=== PATIENT | female | born 1945 | race Caucasian/White ===

== ENCOUNTER 2019-08-21 07:16 | Emergency (ER) | payer MEDICARE, SELFPAY ==
[2019-08-21] VITALS (8 sets, daily range): BP systolic 115–142; BP diastolic 67–91; PULSE 97–136; RESP 14–25; TEMP 36.6; O2SAT 97–100
--- NOTE | 2019-08-21 07:23 | ECG_ITS ---
Measurements Intervals [place] Rate: 135 P: NV: 0 QRS: 62 QRSD: 98 T: 52 QT: 312 QTc: 468 Interpretive Statements ATRIAL FIBRILLATION WITH RAPID VENTRICULAR RESPONSE INCOMPLETE RIGHT BUNDLE BRANCH BLOCK DELAYED PRECORDIAL R/S TRANSITION BASELINE WANDER- I, II ABNORMAL ECG Electronically Signed On 08-21-2019 8:23:00 CDT by Shaan Cuevas D.O.
--- NOTE | 2019-08-21 07:27 | ED.NAVMDI ---
HPI - Nausea/Vomiting/Diarrhea General Chief complaint: Nausea/Vomiting/Diarrhea Stated complaint: dizziness,nausea Time Seen by Provider: 08/21/19 07:22 History of Present Illness HPI Narrative: She was unable to sleep last night because every time she would lie down she became very dizzy. The dizziness was initially a spinning vertigo like sensation, but later became more like light headedness. Additionally she reports nausea without vomiting. She also reports intermittent heart palpitations. She tried alkaseltzer without relief. She was recently diagnosed with atrial fibrillation and a hiatal hernia. She has been feeling anxious about these diagnoses, and she had an appointment scheduled with her surgeon today. She does have a h/o anxiety. No CP, SOB, abdominal pain, vomiting, syncope, weakness, fever Related Data Home Medications Medication Instructions Recorded Confirmed amlodipine 5 mg tablet 5 mg PO DAILY 05/07/19 05/08/19 aspirin 325 mg tablet 325 mg PO DAILY 05/07/19 05/08/19 cholecalciferol (vitamin D3) 50 2,000 unit PO DAILY 05/07/19 05/08/19 mcg (2,000 unit) tablet esomeprazole magnesium 40 mg 40 mg PO DAILY 05/07/19 05/08/19 capsule,delayed release levothyroxine 150 mcg tablet 150 mcg PO DAILY 05/07/19 05/08/19 mirtazapine 30 mg tablet 30 mg PO DAILY 05/07/19 05/08/19 nebivolol 10 mg tablet 10 mg PO DAILY 05/07/19 05/08/19 sertraline 100 mg tablet 100 mg PO DAILY 05/07/19 05/08/19 budesonide 3 mg 3 mg PO TID each 05/08/19 05/08/19 capsule,delayed,extended release calcium carbonate 500 mg calcium 500 mg PO DAILY 05/08/19 05/08/19 (1,250 mg) capsule trazodone 100 mg PO HS 08/21/19 Allergies Allergy/AdvReac Type Severity Reaction Status Date / Time Penicillins Allergy Unknown Unknown Verified 08/21/19 08:02 Review of Systems Review of Systems: All systems reviewed & are unremarkable except as noted in HPI and below Constitutional: Constitutional: Denies fever(s) and Denies weakness Eyes: Eyes: Denies change in vision ENT: Denies sore throat Cardiovascular: Cardiovascular: Denies chest pain and Reports rapid heart rate Respiratory: Respiratory: Denies dyspnea Gastrointestinal: Gastrointestinal: Denies abdominal pain, Reports nausea and Denies vomiting Genitourinary: Genitourinary: Denies dysuria Neurologic: Reports dizziness, Denies syncope and Denies weakness Psychiatric: Psychiatric: Reports anxiety PMFSH Past Medical History Medical History (Updated 08/21/19 @ 10:48 by Daniel Watt MD) Arthritis Atrial fibrillation Cancer Depression Headache, migraine Hiatal hernia High cholesterol Hypertension Surgical History Surgical History History of appendectomy History of carpal tunnel release History of cataract extraction History of section History of hernia repair History of hysterectomy History of thyroidectomy History of tonsillectomy Family History Family History Mother Carcinoma of colon Family history of malignant neoplasm of cervix Father Family history of coronary artery disease Family history of cardiovascular disease Sibling Family history of coronary artery disease Social History Social History Smoking status: Former smoker Smoking end date: 06/06/93 Alcohol intake: current Exam Const: General: no acute distress and alert Nutritional Appearance: well nourished Orientation/consciousness: patient oriented x3 HENMT: Head: normal to inspection Neck: Neck: normal visual inspection Resp: Effort & Inspection: normal respiratory effort Auscultation: clear to auscultation bilaterally Cardio: Rate: tachycardic Rhythm: abnormal rhythm irregularly irregular GI: GI Palp: Yes Soft to palpation and No Tenderness to palpation present (GI) Skin: General skin exam:
[2019-08-21 07:39] LABS: Basophils Percent Auto 0.4 % (0.2-1.2); Eosinophils Percent Auto 0.1 % (0-4.4); Hematocrit 40.8 % (37.0-47.0); Hemoglobin 12.7 g/dL (12.0-15.0); Immature Granulocyte Absolute 0.05 K/mm3 (0.00-0.031); Immature Granulocyte Percent A 0.5 % (0-0.5); Lymphocytes Absolute Auto 1.04 K/mm3 (0.9-3.2); Lymphocytes Percent Auto 9.8 % (18.3-44.2); Mean Corpuscular HGB Conc 31.1 g/dl (32-36); Mean Corpuscular Hemoglobin 25.1 pg (26-34); Mean Corpuscular Volume 80.8 fl (80-100); Mean Platelet Volume 10.9 fl (7.4-10.4); Monocytes Absolute Auto 0.6 K/mm3 (0.1-0.6); Monocytes Percent Auto 5.3 % (2.6-8.5); Neutrophils Absolute Auto 8.9 K/mm3 (1.3-6.7); Neutrophils Percent Auto 83.9 % (45.5-73.1); Platelet Count Result 256 k/mm3 (150-375); Red Blood Count 5.05 M/mm3 (4.2-5.4); White Blood Count 10.6 K/mm3 (4.5-10.0)
[2019-08-21 07:49] LABS: Platelet Estimate Adequate (Adequate)
[2019-08-21 07:50] LABS: Ovalocytes 1+ (NORMAL)
[2019-08-21 07:51] LABS: Alanine Aminotransferase 17 U/L (4-35); Albumin Level 4.7 g/dL (3.5-5.1); Alkaline Phosphatase 96 U/L (38-126); Aspartate Amino Transferase 25 U/L (14-36); Bilirubin,Total 0.5 mg/dL (0.2-1.3); Blood Urea Nitrogen 10 mg/dL (7-17); Calcium 9.2 mg/dL (8.4-10.2); Carbon Dioxide 24 mmol/L (22-30); Chloride 85 mmol/L (98-107); Estimated Glomerular Filt Rate > 60; Glucose 173 mg/dL (65-105); Lipase 86 U/L (23-300); Potassium 3.4 mmol/L (3.4-5.0); Sodium 123 mmol/L (137-145)
[2019-08-21 08:08] LABS: Add Urine Microscopic? YES; Appearance Urine Clear (Clear); Bacteria Urine Trace /hpf; Bilirubin Urine Negative (Negative); Blood Urine Negative (Negative); Color Urine Straw (Yellow); Glucose Urine UA 3+ mg/dL (Negative); Ketones Urine 1+ mg/dL (Negative); Leukocyte Esterase Ur Negative LEU/UL (Negative); Nitrate Urine Negative (Negative); Protein Urine 3+ mg/dL (Negative); Specific Grav Ur 1.009 (1.001-1.035); Urobilinogen Urine Negative mg/dL (<2.0); WBC Urine 0-3 /hpf
[2019-08-21] MEDS: ONDANSETRON INJ 4 MG/2 ML VIAL IV PUSH (08:12)
[2019-08-21] MEDS: SODIUM CHLORIDE 0.9% IV 1,000 ML 999 ML IV CONT ×2 (08:12→09:27)
[2019-08-21] MEDS: MECLIZINE HCL 25 MG TABLET PO (08:12)
--- NOTE | 2019-08-21 08:18 | PC.NURSE ---
Pt requested to use restroom, this RN educated patient on need for bedside commode or bedpan due to patient's dizziness and inability to stand well. Pt declined both options, states that she will wait.
== END 2019-08-21 11:09 | disposition home or self-care (01) ==
PROVIDERS: Emergency Provider Emergency Medicine
DX: E86.0 Dehydration (principal); F41.9 Anxiety disorder, unspecified; M19.90 Unspecified osteoarthritis, unspecified site; I48.91 Unspecified atrial fibrillation; F32.9 Major depressive disorder, single episode, unspecified; E78.00 Pure hypercholesterolemia, unspecified; I10 Essential (primary) hypertension; Z98.49 Cataract extraction status, unspecified eye; I45.10 Unspecified right bundle-branch block; R94.31 Abnormal electrocardiogram [ECG] [EKG]
CPT/HCPCS: 36415; 51701; 80053; 81001; 83690; 85025; 93005; 96361; 96374; 96375; 99284; A9270; J2405; J3360; J7030

== ENCOUNTER 2019-11-06 09:37 | Outpatient (CLI) | payer MEDICARE, SELFPAY ==
[2019-11-06 10:10] LABS: Basophils Percent Auto 0.6 % (0.2-1.2); Eosinophils Absolute Auto 0.2 K/mm3 (0-0.3); Eosinophils Percent Auto 3.4 % (0-4.4); Hematocrit 40.4 % (37.0-47.0); Hemoglobin 13.1 g/dL (12.0-15.0); Immature Granulocyte Absolute 0.02 K/mm3 (0.00-0.031); Immature Granulocyte Percent A 0.3 % (0-0.5); Lymphocytes Absolute Auto 1.24 K/mm3 (0.9-3.2); Lymphocytes Percent Auto 17.3 % (18.3-44.2); Mean Corpuscular HGB Conc 32.4 g/dl (32-36); Mean Corpuscular Hemoglobin 29.6 pg (26-34); Mean Corpuscular Volume 91.2 fl (80-100); Mean Platelet Volume 10.6 fl (7.4-10.4); Monocytes Absolute Auto 0.7 K/mm3 (0.1-0.6); Monocytes Percent Auto 10.3 % (2.6-8.5); Neutrophils Absolute Auto 4.9 K/mm3 (1.3-6.7); Neutrophils Percent Auto 68.1 % (45.5-73.1); Platelet Count Result 186 k/mm3 (150-375); Red Blood Count 4.43 M/mm3 (4.2-5.4); Red Cell Distribution Width 15.3 % (11.5-14.5); White Blood Count 7.2 K/mm3 (4.5-10.0)
[2019-11-06 10:33] LABS: Alanine Aminotransferase 14 U/L (4-35); Albumin Level 4.4 g/dL (3.5-5.1); Alkaline Phosphatase 96 U/L (38-126); Aspartate Amino Transferase 25 U/L (14-36); Bilirubin,Total 0.4 mg/dL (0.2-1.3); Blood Urea Nitrogen 18 mg/dL (7-17); Calcium 9.4 mg/dL (8.4-10.2); Carbon Dioxide 28 mmol/L (22-30); Chloride 97 mmol/L (98-107); Cholesterol 160 mg/dL (0-200); Estimated Glomerular Filt Rate > 60; Glucose 108 mg/dL (65-105); HDL Direct 72 mg/dL; Potassium 4.8 mmol/L (3.4-5.0); Sodium 133 mmol/L (137-145); Triglycerides 235 mg/dL (<150)
[2019-11-06 10:44] LABS: LDL Cholesterol Direct 52 mg/dL
== END 2019-11-06 09:38 | disposition home or self-care (01) ==
PROVIDERS: Visit Provider Internal Medicine Cardiovascular Disease
DX: E78.00 Pure hypercholesterolemia, unspecified (principal); D64.9 Anemia, unspecified; R19.7 Diarrhea, unspecified
CPT/HCPCS: 36415; 80053; 80061; 83735; 85025

== ENCOUNTER 2020-04-01 08:09 | Outpatient (CLI) | payer MEDICARE, SELFPAY ==
[2020-04-01 08:47] LABS: Cholesterol 217 mg/dL (0-200); HDL Direct 89 mg/dL; Triglycerides 139 mg/dL (<150)
[2020-04-01 08:57] LABS: LDL Cholesterol Direct 89 mg/dL
== END 2020-04-01 08:10 | disposition home or self-care (01) ==
PROVIDERS: Visit Provider Internal Medicine Cardiovascular Disease
DX: E78.00 Pure hypercholesterolemia, unspecified (principal); I10 Essential (primary) hypertension
CPT/HCPCS: 36415; 80061

== ENCOUNTER 2020-06-27 10:00 | Outpatient (RCR) | payer MEDICARE, SELFPAY ==
[2020-06-05 10:05] VITALS: BP_SYST 132
--- NOTE | 2020-06-05 11:36 | PTOPEVAL ---
Thank you for referring Ileana Moon to [facility].? The patient is scheduled to be seen for therapy? 2 x/week for 3 weeks. Please review, sign, date and return this plan of care TERESA. I agree with and certify that the following plan of care is medically necessary. Referring Physician Date Attending Provider: William Hackett MD Referring Provider: William Hackett MD *PT Outpatient Evaluation Start: 06/05/20 10:06 Freq: Status: Active Protocol: Document 06/05/20 10:05 JOEL (Rec: 06/05/20 11:06 JOEL [id number]) Therapy Assessment Status Assessment Status Assessment Status Evaluation Outpatient Past Medical History Past Medical History Source of Past Medical History Patient Neurological History Hx Migraine Yes Cardiovascular History Hx Atrial Fibrillation Yes Hx Hypercholesterolemia Yes Hx Hypertension Yes Hx Palpitations Yes Gastrointestinal History Hx Diverticulitis Yes Hx Hernia Yes Musculoskeletal History Hx Arthritis Yes: right shoulder Hx Orthopedic Surgery Yes: right rotator cuff repair 2 yrs ago Hx Osteoporosis Yes Endocrine History Hx Thyroidectomy Yes Reproductive History Hx Hysterectomy Yes Psychosocial History Hx Anxiety Yes Hx Depression Yes Other History Hx Cancer Yes: thyroid, basal cell Evaluation Information Problem Diagnosis right shoulder pain Onset 2 months Cause yardwork Subjective Information Reports her pain started after Query Text:As Reported By Patient/ raking the leaves ~2 months Family ago. She used to perform silver sneakers everyday, but stopped in August. She does feel like physical strength has decreased. She does like to ride a bike for exercise. She does not perform a stretching or strengthening program at home. She received an injection but is uncertain if it helped. She report pain with any pressure of the right UE. Reports increased pain with reaching and ADL's, lifting or any use of right UE. She tries to avoid use of right UE.
--- NOTE | 2020-06-27 16:04 | PTOPEVAL ---
Thank you for referring Ileana Moon to [facility].? Pt has received 7 therapy visit to address her shoulder impairments. She demonstrates progress with shoulder motion, improved pain and improved soft tissue restrictions. She continues to demonstrates significant weakness of christiano shoulder with right greater than left. She is indep with her HEP at this time. She has reached maximal potential with skilled therapy services with goals partially achieved. DC skilled PT service with pt to cont with her HEP. Please review, sign, date and return this plan of care TERESA. I agree with and certify that the following plan of care is medically necessary. Referring Physician Date Admitting Provider: Attending Provider: William Hackett MD Referring Provider: William Hackett MD *PT Outpatient Evaluation Start: 06/05/20 10:06 Freq: Status: Active Protocol: Document 06/27/20 09:56 JOEL (Rec: 06/27/20 10:47 CAP [id number]) Therapy Assessment Status Assessment Status Assessment Status Re-evaluation/Discharge Note Outpatient Past Medical History Past Medical History Source of Past Medical History Patient Neurological History Hx Migraine Yes Cardiovascular History Hx Atrial Fibrillation Yes Hx Hypercholesterolemia Yes Hx Hypertension Yes Hx Palpitations Yes Gastrointestinal History Hx Diverticulitis Yes Hx Hernia Yes Musculoskeletal History Hx Arthritis Yes: right shoulder Hx Orthopedic Surgery Yes: right rotator cuff repair 2 yrs ago Hx Osteoporosis Yes Endocrine History Hx Thyroidectomy Yes Reproductive History Hx Hysterectomy Yes Psychosocial History Hx Anxiety Yes Hx Depression Yes Other History Hx Cancer Yes: thyroid, basal cell Evaluation Information Problem Diagnosis right shoulder pain Onset 2 months Cause yardwork Additional Evaluation Detail Reports her pain started after raking the leaves ~2 months ago. Subjective Information States she is able to perform Query Text:As Reported By Patient/ UE activities but has Family increased pain with pressure through the UE with activities . Any pressure into the right Gh joint causes pain. She reports improved ability to reach with the left UE. She reports increased pain with washing windows. She is able to pee cleaning 1 window, then
== END 2020-06-30 08:26 | disposition home or self-care (01) ==
LOC: ANHPT 10:00
PROVIDERS: PCP Internal Medicine; Referring Provider Orthopaedic Surgery; Visit Provider Orthopaedic Surgery
DX: M19.011 Primary osteoarthritis, right shoulder (principal)
CPT/HCPCS: 97014; 97110; 97112; 97140; 97162; G0283

== ENCOUNTER 2021-01-06 17:07 | Inpatient (IN) | payer MEDICARE, SELFPAY ==
--- NOTE | ~2021-01-06 | CT_ITS ---
EXAMINATION: CT abdomen pelvis wo con DATE: 01/06/2021 20:42 INDICATION: Diarrhea. TECHNIQUE: Computed tomography (CT) of the abdomen and pelvis was performed without intravenous contr ast. Automated exposure control and iterative reconstruction technique were employed. The dose-length product was 328.18 mGy-cm. COMPARISON: None. FINDINGS: The visualized portions of the lung bases demonstrate smooth septal thickening, consistent with mild pulmonary edema. There are small pleural effusions. Cardiomegaly is noted. No pericardial e ffusion. There are surgical changes at the gastroesophageal junction. Calcifications in the liver and spleen are consistent with old granulomatous disease. The gallbladder, pancreas, adrenal glands, and left kidney are normal. There is mild atrophy of right kidney. There is diverticulosis of the colon without evidence of diverticulitis. There are no dilated loops of bowel. The appendix is not visualiz ed. There are no pathologically enlarged lymph nodes. There is no free intraperitoneal fluid. There i s a 2.9 x 1.9 cm cyst in right adnexa, likely benign. There is lumbar levoscoliosis and severe spondy losis. IMPRESSION: 1. Mild pulmonary edema with small pleural effusions. 2. Cardiomegaly. Reviewed, dictated and finalized at location A.
[2021-01-06 17:25] VITALS: BP 148/67; PULSE 61; RESP 18; TEMP 36.8; O2SAT 100
--- NOTE | 2021-01-06 17:26 | ECG_ITS ---
Measurements Intervals [place] Rate: 69 P: 58 GA: 190 QRS: 62 QRSD: 89 T: 43 QT: 424 QTc: 457 Interpretive Statements SINUS RHYTHM FREQUENT ATRIAL PREMATURE COMPLEXES MINIMAL Q WAVES- ANTEROLAT/INF LEADS BASELINE ARTIFACT- I, III ABNORMAL ECG Electronically Signed On 01-06-2021 20:24:42 CDT by Shaan Cuevas D.O.
[2021-01-06 17:56] VITALS: BP 125/43; PULSE 64
[2021-01-06 17:58] VITALS: BP 142/96; PULSE 109
[2021-01-06 17:59] VITALS: BP 161/67; PULSE 95
[2021-01-06 18:02] LABS: Basophils Absolute Auto 0.1 K/mm3 (0.0-0.1); Basophils Percent Auto 0.5 % (0.2-1.2); Eosinophils Percent Auto 0.4 % (0-4.4); Hematocrit 40.8 % (37.0-47.0); Hemoglobin 13.4 g/dL (12.0-15.0); Immature Granulocyte Absolute 0.05 K/mm3 (0.00-0.031); Immature Granulocyte Percent A 0.5 % (0-0.5); Lymphocytes Percent Auto 9.9 % (18.3-44.2); Mean Corpuscular HGB Conc 32.8 g/dl (32-36); Mean Corpuscular Hemoglobin 31.1 pg (26-34); Mean Corpuscular Volume 94.7 fl (80-100); Mean Platelet Volume 10.4 fl (7.4-10.4); Monocytes Absolute Auto 0.9 K/mm3 (0.1-0.6); Monocytes Percent Auto 7.8 % (2.6-8.5); Neutrophils Percent Auto 80.9 % (45.5-73.1); Platelet Count Result 219 k/mm3 (150-375); Red Blood Count 4.31 M/mm3 (4.2-5.4); White Blood Count 11.1 K/mm3 (4.5-10.0)
[2021-01-06 18:11] LABS: Anion Gap 10 mmol/L (8-16); Blood Urea Nitrogen 15 mg/dL (7-17); Carbon Dioxide 21 mmol/L (22-30); Chloride 95 mmol/L (98-107); Estimated CRCL calculation 61 ml/min; Estimated Glomerular Filt Rate > 60; Glucose 188 mg/dL (65-110); Potassium 4.4 mmol/L (3.4-5.0); Sodium 126 mmol/L (137-145)
[2021-01-06] MEDS: SODIUM CHLORIDE 0.9% IV 1,000 ML 999 ML IV CONT (18:26)
[2021-01-06] MEDS: SODIUM CHLORIDE 0.9% IV 1,000 ML 75 ML IV CONT (19:00)
[2021-01-06 19:01] VITALS: BP 117/57; PULSE 70; RESP 15; O2SAT 100
[2021-01-06 20:16] LABS: Creatinine Urine 103.8 mg/dL
--- NOTE | 2021-01-06 20:18 | ED.DIZZY ---
HPI - Dizziness General Chief Complaint: Dizziness Stated Complaint: dizzy,shaky since December Time Seen by Provider: 01/06/21 18:02 Source: patient Mode of arrival: ambulatory Limitations: no limitations History of Present Illness HPI Narrative: 75-year-old female Patient complains that she has been ill since visiting [place] in mid December She got diarrhea while she was there and had to be hydrated in an ER before returning back home Here she is beginning been bothered by recurrence of similar nonbloody diarrhea symptoms and crampy abdominal pain, nausea but not really any vomiting, no fever, poor appetite although she has been trying to stay hydrated by drinking a lot of water She saw her PCP who is in [place] and reports that she had a CT scan done as an outpatient there about a week ago which showed pancolitis She was treated with antidiarrheals which she is taking up to 6 times a day, Flagyl starting late last week, and Cipro was added 1 day ago, but continues to have 4 or 5 loose stools a day She has a GI physician in [place] and has an appointment there in a week Today she felt dizzy as though she might be dehydrated Interestingly about a year and a half ago she was here one other time for dizziness and had a low sodium at that time as well Related Data Home Medications Medication Instructions Recorded Confirmed cholecalciferol (vitamin D3) 50 2,000 unit PO DAILY 05/07/19 12/11/20 mcg (2,000 unit) tablet sertraline 100 mg tablet 100 mg PO DAILY 05/07/19 12/11/20 calcium carbonate 500 mg calcium 500 mg PO DAILY 05/08/19 12/11/20 (1,250 mg) capsule losartan 50 mg-hydrochlorothiazide 1 tablet PO DAILY 02/05/20 12/11/20 12.5 mg tablet omega-3 fatty acids 1,000 mg 1,000 mg PO DAILY 02/05/20 12/11/20 capsule levothyroxine 150 mcg tablet 175 mcg PO DAILY tablet 12/11/20 12/11/20 rosuvastatin 10 mg tablet 10 mg PO tablet 12/11/20 12/11/20 Allergies Allergy/AdvReac Type Severity Reaction Status Date / Time Penicillins Allergy Unknown Unknown Verified 07/29/20 09:40 Review of Systems Review of Systems: All systems reviewed & are unremarkable except as noted in HPI and below Constitutional: Constitutional: Reports no additional constitutional complaints, Denies chills, Reports fatigue, Denies fever(s), Denies headache(s) and Reports weakness Eyes: Eyes: Reports no additional eye complaints and Denies change in vision ENT: Denies headache(s) and Denies sore throat Cardiovascular: Cardiovascular: Denies chest pain and Denies dyspnea Respiratory: Respiratory: Denies cough and Denies dyspnea Gastrointestinal: Gastrointestinal: Reports abdominal pain, Reports diarrhea, Reports nausea and Denies vomiting Genitourinary: Genitourinary: Denies urinary frequency and Denies dysuria Musculoskeletal: Musculoskeletal: Denies deformity, Denies arthralgias, Denies joint swelling and Denies numbness Integumentary/Breasts: Skin/Breast: Denies rash and Denies wounds Neurologic: Denies headache(s), Denies focal weakness and Denies numbness Psychiatric: Psychiatric: Reports no additional psychiatric complaints Endocrine: Endocrine: Reports no additional endocrine complaints Hematologic/Lymphatic: Hematologic/Lymphatic: Reports no additional hematologic/lymphatic complaints Allergic/Immunologic: Allergic/Immunologic: Reports no additional allergic/immunologic complaints [facility] Past Medical History Medical History (Updated 01/06/21 @ 20:24 by Beau Espinosa MD) Age related osteoporosis Anemia Arthritis Arthritis of right shoulder region Atrial fibrillation Basal cell carcinoma BMI between 19-24,adult Cancer Degenerative arthritis of knee, bilateral Depression Headache, migraine Hiatal hernia High cholesterol Hypertension Thyroid cancer Surgical History Surgical History Arthritis of carpometacarpal (CMC) joint of right thumb suspension arthr
[2021-01-06 20:32] LABS: Sodium Urine Random 88 meq/L
--- NOTE | 2021-01-06 20:40 | PM.IMHP ---
H&P: HPI History of Present Illness Date/Time: 01/06/21 20:40 Chief Complaint: dizziness Narrative: This is a 75-year-old female with past medical history significant for hypertension, atrial fibrillation on anticoagulation ,hypothyroidism, dyslipidemia, depression. Patient presented to the emergency room via EMS after she felt very dizzy feeling like passing out states that she knew she was dehydrated and has been trying to drink enough water but has been feeling very nauseated as a result of antibiotics that she was prescribed to take. She has had diarrhea for the last 8 weeks or so a started when she was vacationing in [place] she presented over to the emergency room and she was given fluids and discharged home diarrhea has continued now is a 4 bowel movements a day small amount no phlegm or blood in the diarrhea initially was watery. she denies any fevers chills rigors no vomiting no joint pains no rashes she drinks tap water at times and bottle water as well. preliminary workup was significant for a sodium of 126. Rest of workup has been essentially nonrevealing. Review of Systems Review of Systems: DIARRHEA NOW FOR 8 WEEKS OR SO DIZZINESS JUST RECENTLY Constitutional: Constitutional: Denies chills, Denies fatigue, Denies fever(s), Denies malaise, Reports poor appetite and Denies weakness Eyes: Eyes: Denies change in vision ENT: Denies dysphagia, Denies nasal discharge, Denies nasal obstruction and Denies odynophagia Cardiovascular: Cardiovascular: Denies claudication, Reports lightheadedness, Denies radiating jaw, neck or arm pain, Denies palpitations and Denies dyspnea Respiratory: Respiratory: Denies cough and Denies dyspnea Gastrointestinal: Gastrointestinal: Denies melena, Denies bloating, Denies GI cramping, Denies dyspepsia, Reports diarrhea, Reports nausea and Denies vomiting Genitourinary: Genitourinary: Reports no additional female genitourinary complaints Musculoskeletal: Musculoskeletal: Reports no additional musculoskeletal complaints Integumentary/Breasts: Skin/Breast: Reports system reviewed and no additional complaints, except as docu Neurologic: Reports system reviewed and no additional complaints, except as documented Psychiatric: Psychiatric: Reports no additional psychiatric complaints Endocrine: Endocrine: Reports no additional endocrine complaints Hematologic/Lymphatic: Hematologic/Lymphatic: Reports no additional hematologic/lymphatic complaints Allergic/Immunologic: Allergic/Immunologic: Reports no additional allergic/immunologic complaints PMFSH Past Medical History Medical History (Updated 01/06/21 @ 20:24 by Beau Espinosa MD) Age related osteoporosis Anemia Arthritis Arthritis of right shoulder region Atrial fibrillation Basal cell carcinoma BMI between 19-24,adult Cancer Degenerative arthritis of knee, bilateral Depression Headache, migraine Hiatal hernia High cholesterol Hypertension Thyroid cancer Surgical History Surgical History Arthritis of carpometacarpal (CMC) joint of right thumb suspension arthroplasty H/O knee surgery scope, 2010 H/O shoulder surgery History of appendectomy History of cataract extraction History of section History of hernia repair History of hysterectomy History of thyroidectomy History of tonsillectomy Family History Family History Mother Carcinoma of colon Family history of malignant neoplasm of cervix Father Family history of coronary artery disease Family history of cardiovascular disease Sibling Family history of coronary artery disease Social History Social History Smoking status: Former smoker Smoking end date: 06/06/93 Alcohol intake: current Alcohol use details: occasional Additional occupation/education comments: retired teacher [employer]
[2021-01-06] MEDS: ONDANSETRON INJ 4 MG/2 ML VIAL IV PUSH (21:10)
--- NOTE | 2021-01-06 21:19 | ADMGEN ---
This patient, Ileana Moon, was admitted to 2 Medical Room 256-. Patient/family oriented to hospital policies and general routines including ID bracelet, bed and alarms, visiting hours, pain management, procedures, bathroom and other care routines, personal items, smoking policy, room service/diet, and visiting hours. Information on how to activate the Rapid Response Team has been discussed. Patient/Family are encouraged to report perceived risks to care and to ask questions if they do not understand what they are told or what they should do.
[2021-01-06 21:28] VITALS: BP 165/63; PULSE 84; RESP 16; TEMP 36.3; O2SAT 100; BMI 24.9
[2021-01-06] MEDS: CIPROFLOXACIN 500 MG TAB PO (23:59)
[2021-01-06] MEDS: APIXABAN 5 MG TABLET PO (23:59)
[2021-01-06] MEDS: QUEtiapine FUMARATE 25 MG TABLET PO (23:59)
[2021-01-06] MEDS: metroNIDAZOLE 250 MG TABLET 500 MG PO (23:59)
[2021-01-07] MEDS: SODIUM CHLORIDE 0.9% IV 1,000 ML 75 ML IV CONT ×2 (02:41→16:04)
[2021-01-07 05:50] LABS: Anion Gap 7 mmol/L (8-16); Blood Urea Nitrogen 10 mg/dL (7-17); Calcium 8.5 mg/dL (8.4-10.2); Carbon Dioxide 22 mmol/L (22-30); Chloride 98 mmol/L (98-107); Estimated CRCL calculation 72 ml/min; Estimated Glomerular Filt Rate > 60; Glucose 84 mg/dL (65-110); Sodium 127 mmol/L (137-145)
[2021-01-07 06:00] VITALS: BP 113/49; PULSE 65; RESP 16; TEMP 36.6; O2SAT 97
[2021-01-07] MEDS: ONDANSETRON INJ 4 MG/2 ML VIAL IV PUSH ×2 (06:01→08:55)
[2021-01-07] MEDS: LEVOTHYROXINE SODIUM 75 MCG TABLET PO (06:27)
[2021-01-07] MEDS: metroNIDAZOLE 250 MG TABLET 500 MG PO ×3 (06:27→21:02)
[2021-01-07] MEDS: LEVOTHYROXINE SODIUM 100 MCG TABLET PO (06:27)
[2021-01-07 08:21] LABS: Cortisol Random 3.39 ug/dL
[2021-01-07] MEDS: ROSUVASTATIN 10 MG TABLET PO (09:46)
[2021-01-07] MEDS: POTASSIUM CHLORIDE 20 MEQ TABLET.ER PO (09:46)
[2021-01-07] MEDS: APIXABAN 5 MG TABLET PO ×2 (09:46→16:05)
[2021-01-07 09:47] VITALS: PULSE 66
[2021-01-07] MEDS: BUDESONIDE 3 MG CAP.SR.24H 9 MG PO (09:47)
[2021-01-07] MEDS: CIPROFLOXACIN 500 MG TAB PO ×2 (09:47→21:02)
[2021-01-07] MEDS: SERTRALINE HCL 50 MG TABLET 100 MG PO (09:47)
[2021-01-07] MEDS: NEBIVOLOL HCL 5 MG TABLET 10 MG PO (09:47)
--- NOTE | 2021-01-07 10:55 | PM.IMPN ---
Progress Note: A&P Assessment and Plan (1) Chronic diarrhea: Code(s): K52.9 - Noninfective gastroenteritis and colitis, unspecified Status: Acute (2) Hyponatremia: Code(s): E87.1 - Hypo-osmolality and hyponatremia Status: Acute (3) Degenerative arthritis of knee, bilateral: Qualifiers: Osteoarthritis type: primary Qualified Code(s): M17.0 - Bilateral primary osteoarthritis of knee Code(s): M17.0 - Bilateral primary osteoarthritis of knee Status: Chronic (4) PAT (paroxysmal atrial tachycardia): Code(s): I47.1 - Supraventricular tachycardia Status: Acute (5) High cholesterol: Code(s): E78.00 - Pure hypercholesterolemia, unspecified Status: Acute (6) Hypertension: Code(s): I10 - Essential (primary) hypertension Status: Acute Additional Plan Patient presents with persistent diarrhea. She is currently on Cipro Flagyl which was continued. She was also continued on her Entocort as well. Her diarrhea is slowly improving. He appears to have her chronic colitis possibly ulcerative colitis but patient not sure. I attempted to call her GI doctor and left a message and are awaiting a call back. CT scan here showing no evidence of colitis to suggest that her current treatment plan is working. Suspect given the duration of her colitis that may be a delayed recovery. EKG showing normal sinus rhythm. Will continue beta-martina. Continue Eliquis for now since she has a stable hemoglobin and no evidence of GI bleeding. She has low sodium of 126 on admission. Urine Na elevated at 88 which would seem inappropriate but FENa 0.4%. She is on a diuretic which could be skewing these findings. TSH normal. Cortisol level low but on oral steroids currently so probably suppressed. Na level climbing. CT scan did show possible pulmonary edema although felt less likely given the clinical findings. She is not on oxygen and her lung exam was clear. Will start PT OT. GI has been consulted. Advance diet as tolerated. Blood pressure mostly well controlled. Continue current medications for now. Repeat urine studies. Follow Na. Add celiac panel. Eliquis will cover for DVT prophylaxis. Spoke with her GI doctor and he stated the patient was diagnoes with collagenous colitis in 2015. She has been intermittently treated with Enterocort with good benefit. She had her last colonoscopy in Jul 2019. She had been off the Enterocort up until she called in on December 24 with the above symptoms and Enterocort resumed. She can use [facility] if needed for the diarrhea. She has an appointment on 01/13. He had no other recommendations at this time. Will advance diet as she tolerates. Left message with son. Subjective Date/time seen: 01/07/21 10:55 Interval history: 75yo female with HTN, pAFib and hx of colitis here for diarrhea. Patient states she had diarrhea before she left [place] 3-4 weeks ago. Her symptoms worsened and she was admitted to a hospital in [place] for diarrhea. She treat with IV fluids and her electrolytes were corrected. She refused the CT at that time due to urgency to return home. When she returned to [place] a she contacted her GI doctor (Isaac Woods DO at [phone])from [facility]. she has a history of colitis and this is her 4th time. Enterocort was started. She later contacted her primary care provider and a CT of the abdomen and pelvis was ordered which showed pancolitis. This was about 1 week ago. She was started on Flagyl and then Cipro added. Her stool have improved with decrease watery stools and decreased frequency. No melena or hematochezia. Her last colonoscopy was spring which showed colitis at that time as well. She presents here because of persistent diarrhea. CT scan of the abdomen and pelvis showed diverticulosis but no evidence of diverticulitis or colitis. She still feels very weak. She is not lactose intolerant. Sh
[2021-01-07 14:42] LABS: Creatinine Urine 7.1 mg/dL
[2021-01-07 14:55] VITALS: BP 158/85; PULSE 68; RESP 18; TEMP 36.1; O2SAT 100
[2021-01-07 14:56] LABS: Sodium Urine Random 29 meq/L
--- NOTE | 2021-01-07 16:11 | WPDGICN ---
Assessment and Plan Assessment and plan (1) Chronic diarrhea: Code(s): K52.9 - Noninfective gastroenteritis and colitis, unspecified Status: Acute Assessment and Plan: based on patient she has been diagnosed with microscopic colitis for which she has been using budenoside only when she has a flare she is doing much better now, CT scan no colitis stool samples pending on iv antibiotics tolerating diet she will need follow up with her GI doctor (she already has an appointment for new week) pending serology for celiac disease (2) Dehydration: Code(s): E86.0 - Dehydration Status: Inactive Assessment and Plan: treated and better (3) Hyponatremia: Code(s): E87.1 - Hypo-osmolality and hyponatremia Status: Acute Assessment and Plan: from ongoing gi loss, nausea, etc monitor (4) PAF (paroxysmal atrial fibrillation): Code(s): I48.0 - Paroxysmal atrial fibrillation Status: Acute (5) Family history of colon cancer: Code(s): Z80.0 - Family history of malignant neoplasm of digestive organs Status: Acute Assessment and Plan: she is already establish with GI in [facility] GI Consult Note Consult date/time: 01/07/21 16:11 Reason for consult: diarrhea, dehydration HPI: Ileana Moon is a 75 year old female with past medical history significant for hypertension, atrial fibrillation on anticoagulation, hypothyroidism and also microscopic colitis diagnosed few years ago, she is established with Dr Arvind Woods, customer solutions architect in [facility]. She says that has taken budesonidewhenever she will have more episodes of diarrhea and normally will use it only for 2 weeks at time. She says that probably does not happen more than once a year and in between episodes she has normal bowel movements once a day. About 8 weeks ago she went to [place] where she had diarrhea several times a day, admitted to a hospital for a day for IV hydration. She still had ongoing diarrhea, called her GI doctor about 1 week ago and she has been taking again budesonide and also lomotil several times a day. She came with worsening dizziness feeling like passing out, also nausea. Denies fever or chills. No sick contacts. She says that C diff was negative. CT scan reviewed, no colitis, diverticulosis without inflammation, mild pulmonary edema with small pleural effusions, cardiomegaly. Also had dehydration with Na 126. Started on fluids, given antibiotics and today she is feeling much better. Denies blood in stools. She says that last colonoscopy 2 years ago and had several previously (family history of colon cancer) Review of Systems Constitutional: Constitutional: Reports lethargy Eyes: Eyes: Denies blurry vision ENT: Reports Normal hearing present Cardiovascular: Cardiovascular: Denies chest pain Respiratory: Respiratory: Denies dyspnea Gastrointestinal: Gastrointestinal: Reports diarrhea Genitourinary: Genitourinary: Denies hematuria Musculoskeletal: Musculoskeletal: Denies neck pain Integumentary/Breasts: Skin/Breast: Denies dry skin Neurologic: Comments: dizziness Psychiatric: Psychiatric: Denies confusion [facility] Past Medical History Medical History (Updated 01/07/21 @ 16:22 by George Hayden MD) Age related osteoporosis Anemia Arthritis Arthritis of right shoulder region Atrial fibrillation Basal cell carcinoma BMI between 19-24,adult Cancer Degenerative arthritis of knee, bilateral Depression Family history of colon cancer Headache, migraine Hiatal hernia High cholesterol Hypertension Thyroid cancer Surgical History Surgical History Arthritis of carpometacarpal (CMC) joint of right thumb suspension arthroplasty H/O knee surgery scope, 2010 H/O shoulder surgery History of appendectomy History of cataract extraction History of section History of hernia repair History of hyster
[2021-01-07 20:00] VITALS: PULSE 67; RESP 18; O2SAT 98
[2021-01-07 20:30] VITALS: BP 121/53; PULSE 67; RESP 18; TEMP 36.3; O2SAT 98
[2021-01-07] MEDS: QUEtiapine FUMARATE 25 MG TABLET PO (21:02)
[2021-01-08] MEDS: SODIUM CHLORIDE 0.9% IV 1,000 ML 75 ML IV CONT (04:48)
[2021-01-08 05:12] VITALS: BP 115/77; PULSE 100; RESP 20; TEMP 36.7; O2SAT 98
[2021-01-08 05:45] LABS: Hemoglobin 12.2 g/dL (12.0-15.0); Mean Corpuscular HGB Conc 32.1 g/dl (32-36); Mean Corpuscular Volume 96.7 fl (80-100); Mean Platelet Volume 10.4 fl (7.4-10.4); Platelet Count Result 181 k/mm3 (150-375); Red Blood Count 3.93 M/mm3 (4.2-5.4); Red Cell Distribution Width 13.2 % (11.5-14.5); White Blood Count 5.7 K/mm3 (4.5-10.0)
[2021-01-08 06:00] LABS: Alanine Aminotransferase 19 U/L (4-35); Albumin Level 3.3 g/dL (3.5-5.1); Alkaline Phosphatase 52 U/L (38-126); Anion Gap 7 mmol/L (8-16); Aspartate Amino Transferase 25 U/L (14-36); Bilirubin,Total 0.3 mg/dL (0.2-1.3); Blood Urea Nitrogen 5 mg/dL (7-17); Calcium 8.4 mg/dL (8.4-10.2); Carbon Dioxide 22 mmol/L (22-30); Chloride 103 mmol/L (98-107); Estimated CRCL calculation 72 ml/min; Estimated Glomerular Filt Rate > 60; Glucose 88 mg/dL (65-110); Potassium 3.6 mmol/L (3.4-5.0); Sodium 132 mmol/L (137-145)
[2021-01-08] MEDS: LEVOTHYROXINE SODIUM 100 MCG TABLET PO (06:07)
[2021-01-08] MEDS: LEVOTHYROXINE SODIUM 75 MCG TABLET PO (06:07)
[2021-01-08] MEDS: metroNIDAZOLE 250 MG TABLET 500 MG PO (06:07)
[2021-01-08] MEDS: BUDESONIDE 3 MG CAP.SR.24H 9 MG PO (08:12)
[2021-01-08] MEDS: CALCIUM CARBONATE (OSCAL) 500 MG TABLET PO (08:12)
[2021-01-08 08:13] VITALS: PULSE 86
[2021-01-08] MEDS: APIXABAN 5 MG TABLET PO (08:13)
[2021-01-08] MEDS: CIPROFLOXACIN 500 MG TAB PO (08:13)
[2021-01-08] MEDS: POTASSIUM CHLORIDE 20 MEQ TABLET.ER PO (08:13)
[2021-01-08] MEDS: NEBIVOLOL HCL 5 MG TABLET 10 MG PO (08:13)
[2021-01-08] MEDS: OMEGA 3 POLYUNSAT FATTY ACIDS 1 GM CAP PO (08:13)
[2021-01-08] MEDS: SERTRALINE HCL 50 MG TABLET 100 MG PO (08:13)
[2021-01-08] MEDS: CHOLECALCIFEROL 1,000 UNITS TABLET 2000 UNITS PO (08:13)
[2021-01-08] MEDS: amLODIPine BESYLATE 5 MG TABLET 10 MG PO (08:13)
--- NOTE | 2021-01-08 10:42 | PM.DS ---
DS: Admitting Diagnosis Admitting Diagnosis Diarrhea DS: Discharge Diagnosis Discharge Diagnosis (1) Chronic diarrhea: Code(s): K52.9 - Noninfective gastroenteritis and colitis, unspecified Status: Acute Assessment and Plan: secondary to collagenous colitis. (2) Hyponatremia: Code(s): E87.1 - Hypo-osmolality and hyponatremia Status: Acute (3) Degenerative arthritis of knee, bilateral: Qualifiers: Osteoarthritis type: primary Qualified Code(s): M17.0 - Bilateral primary osteoarthritis of knee Code(s): M17.0 - Bilateral primary osteoarthritis of knee Status: Chronic (4) PAT (paroxysmal atrial tachycardia): Code(s): I47.1 - Supraventricular tachycardia Status: Acute (5) High cholesterol: Code(s): E78.00 - Pure hypercholesterolemia, unspecified Status: Acute (6) Hypertension: Code(s): I10 - Essential (primary) hypertension Status: Acute DS: Summary Hospital Course Reason for hospitalization: 75yo female here for diarrhea. Please see H&P for details Hospital Course: Patient states she had diarrhea before she left [place] 3-4 weeks ago. Her symptoms worsened and she was admitted to a hospital in [place] for diarrhea. She treat with IV fluids and her electrolytes were corrected. She refused the CT at that time due to urgency to return home. When she returned to [place] a she contacted her GI doctor (Isaac Woods DO at [phone])from [facility]. she has a history of colitis and this is her 4th time. Enterocort was started. She later contacted her primary care provider and a CT of the abdomen and pelvis was ordered which showed pancolitis. This was about 1 week ago. She was started on Flagyl and then Cipro added. Her stool have improved with decrease watery stools and decreased frequency. No melena or hematochezia. Her last colonoscopy was spring which showed colitis at that time as well. She presented here because of persistent diarrhea. CT scan here showing no evidence of colitis to suggest that her current treatment plan is working. Suspect given the duration of her colitis that may be a delayed recovery. EKG showing normal sinus rhythm. Will continue her beta-martina. We continued her Eliquis as well since she had a stable hemoglobin and no evidence of GI bleeding. She had low sodium of 126 on admission. Urine Na elevated at 88 which would seem inappropriate but FENa 0.4%. She was on a diuretic which could be skewing these findings. TSH normal. Cortisol level low but on oral steroids currently so probably suppressed. Na level climbed to 132 with the IV fluids. CT scan did show possible pulmonary edema although felt less likely given the clinical findings. She is not on oxygen and her lung exam was clear. GI has been consulted here. Spoke with her GI doctor and he stated the patient was diagnosed with collagenous colitis in 2015. She has been intermittently treated with Enterocort with good benefit. She had her last colonoscopy in Jul 2019. She had been off the Enterocort up until she called in on December 24 with the above symptoms and Enterocort resumed. She can use Lomotile if needed for the diarrhea. She has an appointment on 01/13/21. We advanced her diet which she tolerated well. Diarrhea improved. She feels well and is requesting discharge. She overall did well and was able to discharged home 01/08/21 Status at Discharge Cognitive/behavioral status at discharge: stable Time Spent with Patient Time attestation: Total time spent providing and/or coordinating discharge services: 32 minutes Time spent: Greater than 30 minutes Exam Narrative: AF 98.1 115/77 86 20 98% ra Gen - NARD Chest - CTA bilaterally, nml RR CV - RRR S1/S2 with occasional extra beat Abd - Soft, NT/ND, Positive BS Ext - No pedal edema Neuro - Alert and oriented. Nonfocal exam. Psych - Nml mood and affect Skin -
[2021-01-11 00:36] LABS: Osmolality, Urine 590 mOsm/kg (50-1200)
[2021-01-12 21:15] LABS: Lactoferrin, Stool Negative (Negative)
--- NOTE | 2021-01-13 10:10 | PC.NURSE ---
Stool cx is negative.
[2021-01-14 10:36] LABS: Gliadin AB, IgG 3 Units (<20); Reticulin IgA Negative (Negative); TTG IGA AB 1 U/mL (<4)
--- NOTE | 2021-01-15 13:28 | PC.NURSE ---
Celiac panel is WNL. Oand P are negative Stool cx is negative Stool WBC- negative. Dr. Brian iperre.
== END 2021-01-08 11:59 | disposition home or self-care (01) | DRG 392 ==
LOC: ANHED 18:02 → ANH2MED 20:24
PROVIDERS: Internal Medicine; Admitting Provider Internal Medicine; Emergency Provider Emergency Medicine; PCP Internal Medicine; Visit Provider Internal Medicine
DX: K52.9 Noninfective gastroenteritis and colitis, unspecified (principal); E87.1 Hypo-osmolality and hyponatremia; I47.1 Supraventricular tachycardia; E86.0 Dehydration; I48.0 Paroxysmal atrial fibrillation; M17.0 Bilateral primary osteoarthritis of knee; E78.00 Pure hypercholesterolemia, unspecified; I10 Essential (primary) hypertension; Z79.899 Other long term (current) drug therapy; Z80.0 Family history of malignant neoplasm of digestive organs; Z85.850 Personal history of malignant neoplasm of thyroid; Z87.891 Personal history of nicotine dependence
CPT/HCPCS: 36415; 74176; 80048; 80053; 82533; 82570; 83516; 83630; 83935; 84300; 84443; 85025; 85027; 86255; 87045; 87046; 87177; 87209; 87269; 87427; 89055; 93005; 96360; 97165; 99285; A9270; J2405; J7030

== ENCOUNTER 2021-11-10 09:51 | Outpatient (CLI) | payer MEDICARE, SELFPAY ==
--- NOTE | ~2021-11-10 | NM_ITS ---
EXAMINATION: NM zeina stress w perfusion DATE: 11/10/2021 12:36 CDT INDICATION: Dyspnea TECHNIQUE: Rest images were obtained following intravenous administration of 9.2 mCi Tc99m tetrofosmi n (Myoview). The patient was infused intravenously with Lexiscan (regadenoson). Then, 28.2 mCi Tc99m tetrofosmin (Myoview) was administered intravenously, and stress images were obtained. Data was recon structed into short axis and horizontal and vertical long axis SPECT images. Gated SPECT images were also obtained. COMPARISON: None. FINDINGS: There is no definite reversible or fixed perfusion abnormality to suggest ischemia or infar ction. There is no segmental wall motion abnormality. Left ventricular ejection fraction measures 6 7%. IMPRESSION: 1. No definite ischemia or infarct. 2. Normal left ventricular ejection fraction measuring 67%. Reviewed, dictated and finalized at location B.
--- NOTE | 2021-11-10 09:54 | EST_ITS ---
Patient Info Name: Ileana Moon Age: 76 years : 1945 Gender: Female Ht: 66 in Wt: 140 lbs BSA: 1.72 m2 HR: 94 bpm BP: 144 / 91 mmHg Heart Rhythm: Atrial Fibrillation Exam Date: 11/10/2021 11:06 AM Exam Location: [facility] Stress Patient Status: Outpatient Admit Date: 11/10/2021 Staff Ordering Physician: Shaan Cuevas DO Attending Provider: Shaan Cuevas DO Exercise Technologist: Yuliana Sr CT Exercise Physician: Shaan Cuevas DO Exam Type: CA stress zeina w NM Study Info Indications R06.02 - Shortness of breath A regadenoson stress test was performed. Summary 1. 1. Negative lexiscan stress test for ischemic ST changes by ECG criteria. 2. 2. Baseline hypertension. 3. 3. Nuclear scan to follow and will be reported separately. Please correlate with it. 4. 4. Patient informed of the above results. Protocol: Lexiscan Stress ECG Details Stage: REST Duration (min): 1 min : 58 sec HR (bpm): 110 SBP (mmHg): 144 DBP (mmHg): 91 Stage: REST Duration (min): 17 min : 5 sec HR (bpm): 104 SBP (mmHg): 144 DBP (mmHg): 91 Stage: STAGE 1 Duration (min): 1 min : 0 sec HR (bpm): 117 SBP (mmHg): 143 DBP (mmHg): 105 Stage: RECOVERY Duration (min): 1 min : 0 sec HR (bpm): 122 SBP (mmHg): 143 DBP (mmHg): 105 Stage: RECOVERY Duration (min): 2 min : 0 sec HR (bpm): 111 SBP (mmHg): 143 DBP (mmHg): 105 Stage: RECOVERY Duration (min): 3 min : 0 sec HR (bpm): 115 SBP (mmHg): 128 DBP (mmHg): 96 Stage: RECOVERY Duration (min): 3 min : 18 sec HR (bpm): 113 SBP (mmHg): 128 DBP (mmHg): 96 Rest HR: 104 bpm Peak HR: 126 bpm Rest Sys BP: 144 mmHg Peak Sys BP: 143 mmHg Max Pred HR: 143 bpm % Max Pred HR: 88 % Target HR: 122 bpm Max RPP: 18,018 bpm*mmHg Termination Reason: Completed protocol Cardiac Symptoms: None Total Time: 1 min : 0 sec Rest Sebastian BP: 91 mmHg Peak Sebastian BP: 105 mmHg Total Dose: 0.4 mg Resting ECG Atrial fibrillation, IRBBB. Stress ECG No ST changes. Arrhythmias None. Report Signatures
== END 2021-11-10 09:52 | disposition home or self-care (01) ==
PROVIDERS: PCP Internal Medicine; Visit Provider Internal Medicine Cardiovascular Disease
DX: R06.00 Dyspnea, unspecified (principal)
CPT/HCPCS: 78452; 93017; A9502; J2785

== ENCOUNTER 2021-11-17 09:51 | Outpatient (CLI) | payer MEDICARE, SELFPAY ==
[2021-11-17 11:33] LABS: Basophils Percent Auto 0.6 % (0.2-1.2); Eosinophils Absolute Auto 0.2 K/mm3 (0-0.3); Eosinophils Percent Auto 2.9 % (0-4.4); Hematocrit 46.1 % (37.0-47.0); Hemoglobin 14.9 g/dL (12.0-15.0); Immature Granulocyte Absolute 0.03 K/mm3 (0.00-0.031); Immature Granulocyte Percent A 0.4 % (0-0.5); Lymphocytes Absolute Auto 1.52 K/mm3 (0.9-3.2); Lymphocytes Percent Auto 21.8 % (18.3-44.2); Mean Corpuscular HGB Conc 32.3 g/dl (32-36); Mean Corpuscular Hemoglobin 31.8 pg (26-34); Mean Corpuscular Volume 98.3 fl (80-100); Mean Platelet Volume 10.3 fl (7.4-10.4); Monocytes Absolute Auto 0.8 K/mm3 (0.1-0.6); Monocytes Percent Auto 11.3 % (2.6-8.5); Neutrophils Absolute Auto 4.4 K/mm3 (1.3-6.7); Platelet Count Result 239 k/mm3 (150-375); Red Blood Count 4.69 M/mm3 (4.2-5.4)
[2021-11-17 11:36] LABS: Appearance Urine Clear (Clear); Bilirubin Urine Negative (Negative); Blood Urine Negative (Negative); Color Urine Yellow (Yellow); Glucose Urine UA Negative (Negative); Ketones Urine Negative (Negative); Leukocyte Esterase Ur Negative LEU/UL (Negative); Nitrate Urine Negative (Negative); Protein Urine Trace mg/dL (Negative); Urobilinogen Urine 0.2 mg/dL (<2.0); pH Urine 7.5 (5.0-9.0)
[2021-11-17 11:42] LABS: Hemoglobin A1C 5.4 % (<5.7); INR 1.1; Prothrombin Time 14.1 Seconds (11.1-14.7)
[2021-11-17 11:43] LABS: Anion Gap 5 mmol/L (8-16); Blood Urea Nitrogen 21 mg/dL (7-17); Calcium 9.8 mg/dL (8.4-10.2); Carbon Dioxide 29 mmol/L (22-30); Chloride 97 mmol/L (98-107); Estimated Glomerular Filt Rate > 60; Glucose 93 mg/dL (65-110); Partial Thromboplastin Time 39.5 SECONDS (22.3-36.8); Potassium 5.5 mmol/L (3.4-5.0); Sodium 131 mmol/L (137-145)
[2021-11-17 11:44] LABS: Urine Cotinine NEGATIVE
[2021-11-17 11:47] LABS: Bacteria Urine Trace /hpf; Mucus Urine Rare /lpf; Squamous Epithelial Cell Urine Rare /hpf (Few)
[2021-11-17 12:37] LABS: Add Urine Microscopic? YES
== END 2021-11-17 09:52 | disposition home or self-care (01) ==
LOC: ANHSURGERY 09:55
PROVIDERS: PCP Internal Medicine; Visit Provider Orthopaedic Surgery
DX: M17.11 Unilateral primary osteoarthritis, right knee (principal); Z01.818 Encounter for other preprocedural examination
CPT/HCPCS: 80048; 80307; 81001; 82040; 83036; 85025; 85610; 85730; 87081; 87086

== ENCOUNTER 2021-12-02 13:10 | Inpatient (IN) | payer MEDICARE, SELFPAY ==
[2021-11-17 10:15] VITALS: BP 124/85; PULSE 89; RESP 16; TEMP 36.7; O2SAT 97; BMI 24.3
--- NOTE | 2021-11-17 10:35 | PC.NURSE ---
Report to the Outpatient Waiting Room, entrance under the green pavilion located off [facility], at time __6:00AM on date _12/01/21 . OR Time: _7:30AM . - You and your visitor will be asked a series of questions to screen for COVID 19 for your protection. - Only one visitor is allowed at this time. - The patient visitor is requested to leave or wait in car when not with patient. - A mask is required within the hospital. Patients may have clear liquids (water, carbonated beverages, clear teas, apple juice) until 3 hours prior to surgery with a maximum of 20 ounces. - No food from midnight until time of surgery - Infants may have breast milk until 4 hours before surgery, formula 6 hours prior to surgery. - Children will be allowed to drink immediately following surgery. If applicable, please bring a bottle or sippy cup to assist with drinking. Juice, water, soda, and popsicles are readily available. For infants on formula, please bring formula the day of surgery. Pacifiers are allowed. Take the following medications with a SIP of water the morning of surgery: _AMLODIPINE, LEVOTHYROXINE, NEBIVOLOL, SERTRALINE Medications to discontinue per physician ___HOLD ALL VITAMINS/SUPPLEMENT 3 DAYS PRE-OP-LAST DOSE 11/27/21. HOLD ELIQUIS PER DR WHITE/DR MOJICA. PATIENT CALLING TO CHECK TODAY__ Please no make-up, nail micronesian, hairspray, perfume, deodorant, or body powder the day of surgery. No jewelry (including any body piercings) or valuables the day of surgery, leave them at home. Please take a shower or bath the night before, or the morning of, surgery with an antibacterial soap. Wear comfortable, loose fitting clothing. Children are encouraged to wear pajamas. - Jewelry must be removed prior to entering the operating room. Rings and piercings that are not removed may be cut off. - The hospital will not accept responsibility for valuables. - Please leave all valuables, including medications, at home the day of surgery. If you are going home after surgery, a licensed cattle driver must drive you home. - NO public transportation without another adult. - We recommend that an adult stay with you for 24 hours following discharge. - We also recommend that you do not drive, make important decision, drink alcoholic beverages, or take any drugs that were not prescribed by your health care provider for at least 24 hours after your discharge time. For Pediatric surgeries, we recommend two adults accompany the child home (only one inside the building at this time). Follow any additional instructions given to you from your surgeon. If you or anyone in your household have experienced Covid symptoms in the past week, please notify your surgeon or the nurse liaison at the phone number below for possible testing. Telephone instructions given to ___PATIENT and asked if any additional questions and then verbalized understanding. Patient advised to call surgeon office or pre surgery nurse liaison [phone] if any additional questions.6:00AM
[2021-12-01] VITALS (16 sets, daily range): BP systolic 112–145; BP diastolic 64–94; PULSE 92–107; RESP 12–20; TEMP 36.4–36.6; O2SAT 90–100
[2021-12-01] MEDS: ACETAMINOPHEN 500 MG TABLET 1000 MG PO (06:33)
[2021-12-01] MEDS: TRANEXAMIC ACID 1,000MG/ISO100 1,000 MG/100 ML BAG 200 MG IVPB (06:36)
[2021-12-01] MEDS: LACTATED RINGERS 1,000 ML 30 ML IV CONT ×2 (06:36→09:55)
--- NOTE | 2021-12-01 06:55 | WPDANESEPPF ---
Anes - Initial Pre Proc Eval Procedure: Operation Date: 12/01/21 07:30 Proposed Procedures p Right Total Knee Arthroplasty, Right Shoulder Cortisone Injection - Dominick Arechiga MD Date/Time: 12/01/21 06:55 Surgeon: Dominick Arechiga MD Pre Op Diagnosis: Right Knee DJD, right shoulder DJD Patient Data Age: 76 Gender: F Height: 1.65 m Weight: 66.4 kg Last Vital Signs Temp 36.7 C 11/17/21 10:15 Pulse 89 11/17/21 10:15 Resp 16 11/17/21 10:15 BP 124/85 11/17/21 10:15 Pulse Ox 97 11/17/21 10:15 O2 Del Method Room Air 11/17/21 10:15 Allergies Allergy/AdvReac Type Severity Reaction Status Date / Time Penicillins Allergy Severe THROAT Verified 11/23/21 09:39 SWELLING Home Medications Medication Instructions Recorded Confirmed Type cholecalciferol (vitamin D3) 50 2,000 unit PO DAILY 05/07/19 11/23/21 History mcg (2,000 unit) tablet sertraline 100 mg tablet 100 mg PO QAM 05/07/19 11/23/21 History omega-3 fatty acids 1,000 mg 1,000 mg PO DAILY 02/05/20 11/23/21 History capsule (Fish Oil Concentrate) levothyroxine 175 mcg tablet 175 mcg PO QAM 01/06/21 11/23/21 History quetiapine 25 mg tablet 50 mg PO HS 10/22/21 11/23/21 History acetaminophen 650 mg 1,300 mg PO Q12H PRN Pain 11/17/21 11/23/21 History tablet,extended release amlodipine 10 mg tablet 10 mg PO QAM 11/17/21 11/23/21 History apixaban 5 mg tablet (Eliquis) 5 mg PO BID 11/17/21 11/23/21 History budesonide 3 mg 1 ea PO TID PRN Diarrhea 11/17/21 11/23/21 History capsule,delayed,extended release calcium carbonate 600 mg-vitamin 1 tablet PO HS 11/17/21 11/23/21 History D3 20 mcg (800 unit) chewable tablet (Caltrate 600 plus D) losartan 100 1 tablet PO QAM 11/17/21 11/23/21 History mg-hydrochlorothiazide 25 mg tablet nebivolol 20 mg tablet 20 mg PO QAM 11/17/21 11/23/21 History sulfamethoxazole 800 1 tablet PO Q12H UTI #20 tabs 11/20/21 11/23/21 Rx mg-trimethoprim 160 mg tablet Patient hx anesthesia problems: none Family hx anesthesia problems: none Results Review: All pre-operative results and documents have been reviewed as part of the pre-operative evaluation. [facility] Past Medical History Medical History Age related osteoporosis Anemia Arthritis Arthritis of right shoulder region Atrial fibrillation Basal cell carcinoma BMI between 19-24,adult Cancer Degenerative arthritis of knee, bilateral Depression Family history of colon cancer Headache, migraine Hiatal hernia High cholesterol Hypertension Left knee DJD Right knee DJD Thyroid cancer Surgical History Surgical History Arthritis of carpometacarpal (CMC) joint of right thumb suspension arthroplasty H/O knee surgery , 2010 H/O shoulder surgery History of appendectomy History of arthroscopy of knee History of basal cell carcinoma (BCC) excision History of bilateral carpal tunnel release History of cataract extraction History of section History of hernia repair History of hysterectomy History of thyroidectomy History of tonsillectomy History of Zenker's diverticulum removal Family History Family History Mother Carcinoma of colon Family history of malignant neoplasm of cervix Father Family history of coronary artery disease Family history of cardiovascular disease Sibling Family history of coronary artery disease Social History Social History Smoking packs per day: 1 Smoking cigarettes per day: 20.0 Years smoked: 30 Smoking pack-years: 30.00 Smoking status: Former smoker Tobacco type: cigarettes Smoking end date: 06/06/93 Alcohol intake: never Alcohol use details: occasional Substance use: never Living arrangements: alone Additional occupation/educ
--- NOTE | 2021-12-01 07:11 | WPDHPUPDATE1 ---
History and Physical Update Update Date/Time: 12/01/21 07:11 History and Physical has been reviewed, including an updated exam of the patient. There are NO changes in the patient's condition. Risks, benefits, and alternatives have been discussed and questions answered. Patient agrees to proceed with procedure.
--- NOTE | 2021-12-01 07:26 | WPDANESPNB ---
Anes - Peripheral Nerve Block Date/Time: 12/01/21 07:26 I have discussed with the patient/family/POA the placement of a peripheral nerve block for post-operative pain management, including associated risks, benefits, complications, and side effects. Alternative methods of post-operative analgesia were detailed. Questions were solicited and answers provided to the satisfaction of the patient/family/POA. Time-Out: A pre-procedural Time-Out was completed immediately before starting the procedure and confirmed: Patient Identification, Site, Procedure, Patient Position and the Availability of Requisite Equipment. Clinical Indications: Acute post-operative pain management requested by the operative surgeon. Nerve Block Insertion Note Anes-nerve block: adductor canal right Patient position: supine Skin prep: chlorhexidine Needle: 22 gauge, stimulating, insulated echogenic needle. Needle length: 80 mm Technique: ultrasound Technique comment: mid 1mg fent 100mcg Injectate: bupivacaine 0.5% with epi 5 mcg/ml (30ml no epi) Observations: tolerated well Complications: none Procedure start time:: 715 Procedure end time:: 722
[2021-12-01] MEDS: ceFAZolin 2 GM/D5W 50 ML 2 GM/50 ML BAG IVPB ×3 (07:29→22:41)
[2021-12-01] MEDS: GENTAMICIN BONE CEMENT REFOBACIN 1 EACH TOPICAL (08:47)
[2021-12-01] MEDS: TRANEXAMIC ACID 1,000 MG/10 ML AMPUL 1000 MG IV PUSH ×2 (09:12)
[2021-12-01] MEDS: LIDOCAINE HCL 1% PF 30 ML VIAL 5 ML INFILTRATE (10:00)
--- NOTE | 2021-12-01 10:07 | P.OP_ITS ---
Procedure Note - Detailed Date of Procedure 12/01/21 Pre-op Diagnosis Right Knee DJD, right shoulder DJD Post-op Diagnosis Same Procedure Performed R TKA, RIGHT SHOULDER INJECTION Surgeon Dominick Arechiga MD Anesthesia General Description of Procedure THE RIGHT KNEE WAS PREPPED AND DRAPED IN THE STERILE FASHION. THERE WAS A 10 DEGREE FLEXION CONTRACTURE. A MIDLINE SKIN INCISION WAS MADE. A MEDIAL PARAPATELLAR ARTHROTOMY WAS MADE. THE PATELLA WAS EVERTED. THERE WAS TRICOMPARTMENT DJD. AN INTRAMEDULLARY JOSE WAS PLACED IN THE FEMUR. A DISTAL FEMORAL CUT WAS MADE IN 5 DEGREES OF VALGUS REMOVING APPROXIMATELY 9 MM OF BONE FROM THE DISTAL FEMUR. THE FEMUR WAS SIZED TO 62.5. A 62.5 FEMORAL CUTTING BLOCK WAS PLACED IN 3 DEGREES OF EXTERNAL ROTATION AND IN ALIGNMENT WITH WIN'S LINE AND THE TRANSEPICONDYLAR AXIS. ANTERIOR POSTERIOR AND CHAMFER CUTS WERE MADE. THE CUTS WERE EXCELLENT. NEXT AN INTRAMEDULLARY CUTTING GUIDE WAS PLACED IN THE TIBIA. A TRANS TIBIAL CUT WAS MADE ALONG THE LONG AXIS OF THE TIBIA. APPROXIMATELY 10 MM OF BONE WAS REMOVED FROM THE HIGH SIDE OF THE TIBIA. THE TIBIA WAS THEN PLANED TO A SMOOTH SURFACE. POSTERIOR FEMORAL OSTEOPHYTES WERE REMOVED FROM THE FEMORAL CONDYLES. A 71 TIBIAL TRIAL WAS PLACED IN ALIGNMENT WITH THE 1/3 MEDIAL ASPECT OF THE TIBIAL TUBERCLE. THEN A 62.5 FEMORAL TRIAL COMPONENT WAS PLACED. BOTH HAD EXCELLENT FITS. EVENTUALLY A 10 MM CR POLYETHYLENE TRIAL COMPONENT WAS PLACED. THE KNEE WAS TAKEN THROUGH A RANGE OF MOTION. THE KNEE CAME OUT TO FULL EXTENSION. THERE WAS NO ABNORMAL TILT TO THE PATELLA. THERE WAS GOOD A/P AND VARUS/VALGUS STABILITY. THERE WAS NO EXCESSIVE ROLL BACK WITH FLEXION. THE TRIAL COMPONENTS WERE REMOVED. THEN A 62.5 FEMORAL COMPONENT AND 71 TIBIAL COMPONENT WITH A 10 CR POLYETHYLENE COMPONENT WERE CEMENTED INTO PLACE. ONCE THE CEMENT WAS HARD THE KNEE WAS TAKEN THROUGH A ROM AGAIN AND FOUND TO BE STABLE WITH NO PATELLA TILT NO EXCESSIVE ROLL BACK WITH FLEXION AND GOOD STABILITY WITH COMPLETE AND FULL EXTENSION. THE KNEE WAS IRRIGATED WITH STERILE BETADINE AND WATER FOR ABOUT 3 MINUTES. THE BLE EDERS WERE CAUTERIZED. THE ARTHROTOMY WAS REPAIRED WITH NUMBER 1 VICRYL. THE SUB CUTANEOUS LAYER WITH 2-0 VICRYL AND THE SKIN WITH JOY. THE WOUND WAS WASHED AND A STERILE DRESSING WAS APPLIED. NEXT THE RIGHT SHOULDER WAS PREPPED AND AN INJECTION OF DEPO MEDROL 80 MG 1 CC AND LIDOCAINE 1% 5 CC WAS INJECTED INTO THE SUBACROMIAL SPACE. PATIENT WAS EXTUBATED. Estimated Blood Loss 100 Pathology None sent Complications No immediate complications Condition Stable Disposition PACU
--- NOTE | 2021-12-01 11:28 | ADMGEN ---
This patient, Ileana Moon, was admitted to 2 Medical Room 244-. Patient/family oriented to hospital policies and general routines including ID bracelet, bed and alarms, visiting hours, pain management, procedures, bathroom and other care routines, personal items, smoking policy, room service/diet, and visiting hours. Information on how to activate the Rapid Response Team has been discussed. Patient/Family are encouraged to report perceived risks to care and to ask questions if they do not understand what they are told or what they should do. Report received from SERA Alberto
[2021-12-01 12:12] LABS: Estimated CRCL calculation 52 ml/min; Estimated Glomerular Filt Rate > 60
[2021-12-01] MEDS: CELECOXIB 200 MG CAPSULE PO (16:41)
[2021-12-01] MEDS: APIXABAN 5 MG TABLET PO (16:41)
[2021-12-01] MEDS: SENNA/DOCUSATE SODIUM TABLET 2 TAB PO (16:41)
[2021-12-01] MEDS: QUEtiapine FUMARATE 25 MG TABLET 50 MG PO (20:59)
[2021-12-01] MEDS: diazePAM (*CRX) 5 MG TABLET PO (22:41)
[2021-12-02] VITALS (15 sets, daily range): BP systolic 92–125; BP diastolic 43–65; PULSE 80–112; RESP 16–20; TEMP 36.2–36.7; O2SAT 96–100
--- NOTE | ~2021-12-02 | XR_ITS ---
XR knee RT 2V DATE: 12/01/2021 10:27 INDICATION: Right total knee replacement TECHNIQUE: Postoperative AP and crosstable lateral views of right knee COMPARISON: 10/22/2021 right knee FINDINGS: Right total knee arthroplasty is noted with normal alignment at the knee joint. There are s kin raf anteriorly. There is postoperative subcutaneous emphysema and air within the knee joint. There is osteopenia. No fracture or dislocation, periosteal reaction or bone destruction is detected. IMPRESSION: Right knee arthroplasty Reviewed, dictated and finalized at location B. IMPRESSION: Right knee arthroplasty
[2021-12-02 06:07] LABS: Basophils Percent Auto 0.2 % (0.2-1.2); Eosinophils Percent Auto 0.3 % (0-4.4); Hematocrit 26.9 % (37.0-47.0); Hemoglobin 9.3 g/dL (12.0-15.0); Immature Granulocyte Absolute 0.06 K/mm3 (0.00-0.031); Immature Granulocyte Percent A 0.5 % (0-0.5); Lymphocytes Absolute Auto 0.71 K/mm3 (0.9-3.2); Lymphocytes Percent Auto 6.2 % (18.3-44.2); Mean Corpuscular HGB Conc 34.6 g/dl (32-36); Mean Corpuscular Hemoglobin 32.5 pg (26-34); Mean Corpuscular Volume 94.1 fl (80-100); Mean Platelet Volume 10.8 fl (7.4-10.4); Monocytes Absolute Auto 1.1 K/mm3 (0.1-0.6); Monocytes Percent Auto 9.8 % (2.6-8.5); Neutrophils Absolute Auto 9.6 K/mm3 (1.3-6.7); Platelet Count Result 142 k/mm3 (150-375); Red Blood Count 2.86 M/mm3 (4.2-5.4); White Blood Count 11.5 K/mm3 (4.5-10.0)
[2021-12-02] MEDS: ceFAZolin 2 GM/D5W 50 ML 2 GM/50 ML BAG IVPB (06:13)
[2021-12-02] MEDS: oxyCODONE/ACETAMINOPHEN (*CRX) 5-325 MG TABLET 1 TABLET PO ×3 (06:14→20:37)
[2021-12-02] MEDS: LEVOTHYROXINE SODIUM 100 MCG, LEVOTHYROXINE SODIUM 75 MCG 175 MCG PO (06:14)
[2021-12-02 06:18] LABS: Anion Gap 5 mmol/L (8-16); Blood Urea Nitrogen 12 mg/dL (7-17); Calcium 8.1 mg/dL (8.4-10.2); Carbon Dioxide 23 mmol/L (22-30); Chloride 92 mmol/L (98-107); Estimated CRCL calculation 71 ml/min; Estimated Glomerular Filt Rate > 60; Glucose 121 mg/dL (65-110); Potassium 4.2 mmol/L (3.4-5.0); Sodium 120 mmol/L (137-145)
--- NOTE | 2021-12-02 08:05 | PCPTNOTE ---
Attempted to see patient for PT at this time, however patient was eating her breakfast and asked PT to come back later.
[2021-12-02 08:10] LABS: Iron 75 ug/dL (37-170)
[2021-12-02 08:16] LABS: Lactate Dehydrogenase 370 U/L (313-618)
[2021-12-02 08:19] LABS: Percent Iron Saturation 24 % (20-50)
[2021-12-02 08:24] LABS: NT Pro B Type Natriuretic Pept 1110 pg/mL (5-100); Transferrin 209 mg/dL (206-381)
[2021-12-02] MEDS: NEBIVOLOL HCL 5 MG TABLET 20 MG PO (08:25)
[2021-12-02] MEDS: SENNA/DOCUSATE SODIUM TABLET 2 TAB PO ×2 (08:26→16:02)
[2021-12-02] MEDS: APIXABAN 5 MG TABLET PO ×2 (08:26→16:02)
[2021-12-02] MEDS: CHOLECALCIFEROL 1,000 UNITS TABLET 2000 UNITS PO (08:26)
[2021-12-02] MEDS: CELECOXIB 200 MG CAPSULE PO ×2 (08:26→16:02)
[2021-12-02] MEDS: polyethylene glycoL 3350 17 GM POWD.PACK PO (08:27)
--- NOTE | 2021-12-02 08:30 | PM.IMCN ---
Assessment and Plan Assessment and plan (1) S/P total knee arthroplasty: Code(s): Z96.659 - Presence of unspecified artificial knee joint Status: Acute Assessment and Plan: POD 1 Post op care per orthopedic surgery cefazolin x 3 bags Pain medications: Percocet 1 tab Q4H PRN or 2 Tab Q6H PRN Antiemetics: Zofran PT/OT DVT Eliquis (2) Hyponatremia: Code(s): E87.1 - Hypo-osmolality and hyponatremia Status: Acute Assessment and Plan: Na 120 Urine sodium, creatinine, urea, or osmolality ordered and pending Consider fluids Could be from fluid overload, medication induced BNP 1116 Raise sodium 6 to 8 per 24 hour period Trend labs Labs in the am Tele monitor (3) Hypertension: Code(s): I10 - Essential (primary) hypertension Status: Acute Assessment and Plan: Current BP 117/50 Continue home amlodipine 10mg PO daily, Losartan 100mg PO Daily, Bystolic 20mg PO Daily Trend BP adjust therapy as indicated (4) Atrial fibrillation: Code(s): I48.91 - Unspecified atrial fibrillation Status: Acute Assessment and Plan: History of a fib Continue home Bystolic and Eliquis Telemonitor Looks like she sees Dr. Cuevas for cardiology HR looks to be controlled (5) Anemia: Code(s): D64.9 - Anemia, unspecified Status: Acute Assessment and Plan: H/H 9.3/26.4 Anemia labs Iron 75, TIBC 318% saturation 24, transferrin 209, ferritin 104 Supplement as indicated Seems to be relatively stable at this time transfuse if HGB is <7.0 Could be secondary to acute blood loss, chronic disease, iron deficiency, medication induced, fluid overload Plan thank you for allowing us to participate on case please call us with any questions you may have HPI Data of Consult Consult date: 12/02/21 Requesting Physician: Dominick Arechiga MD Primary Care Provider: Iliana HuynhMD Consult Narrative Reason for consult: Medical management Narrative: 12/02/21 0830 Ileana Moon is a 76 year old female with a past medical HTN, Hypothyroidism, depression who presented with for an elective R. TKA with Dr. Arechiga on 12/01/21. She stated that she is doing ok today. After some questioning she stated That she does feel very off today and kind of weak. She denies any chest pain, shortness of breath, nausea, vomiting, diarrhea, constipation, weakness or fatigue however she did say that she has not been to the bathroom and a few days. She also stated that she is fuzzy in the head but she has not done anything either so she is little worried that she might have more symptoms but because she has got out of bed or done much she is unknown of any other symptoms at this time. Wound looks okay at this time. It is a bit swollen and bruised. Patient did ask about the swelling however it seems relatively normal to me. Hemoglobin hematocrit are a little low could be from acute blood loss anemia however will check anemia labs for further investigation. Sodium was 120 this morning. urine studies have been ordered. Will await further results before nephrology consult. hospitalist service is being consulted for medical management and hyponatremia Review of Systems Review of Systems: All systems reviewed & are unremarkable except as noted in HPI and below PMFSH Past Medical History Medical History Age related osteoporosis Anemia Arthritis Arthritis of right shoulder region Atrial fibrillation Basal cell carcinoma BMI between 19-24,adult Cancer Colitis Degenerative arthritis of knee, bilateral Depression Family history of colon cancer Headache, migraine Hiatal hernia High cholesterol Hypertension Left knee DJD Right knee DJD Thyroid cancer Surgical History Surgical History (Reviewed 12/02/21 @ 09:10 by Bear Ritter
--- NOTE | 2021-12-02 08:30 | P.CONIM_ITS ---
Assessment and Plan Assessment and plan (1) S/P total knee arthroplasty: Code(s): Z96.659 - Presence of unspecified artificial knee joint Status: Acute Assessment and Plan: * POD 1 * Post op care per orthopedic surgery * cefazolin x 3 bags * Pain medications: Percocet 1 tab Q4H PRN or 2 Tab Q6H PRN * Antiemetics: Zofran * PT/OT * DVT Eliquis (2) Hyponatremia: Code(s): E87.1 - Hypo-osmolality and hyponatremia Status: Acute Assessment and Plan: * Na 120 * Urine sodium, creatinine, urea, or osmolality ordered and pending * Consider fluids * Could be from fluid overload, medication induced * BNP 1116 * Raise sodium 6 to 8 per 24 hour period * Trend labs * Labs in the am * Tele monitor (3) Hypertension: Code(s): I10 - Essential (primary) hypertension Status: Acute Assessment and Plan: * Current BP 117/50 * Continue home amlodipine 10mg PO daily, Losartan 100mg PO Daily, Bystolic 20mg PO Daily * Trend BP * adjust therapy as indicated (4) Atrial fibrillation: Code(s): I48.91 - Unspecified atrial fibrillation Status: Acute Assessment and Plan: * History of a fib * Continue home Bystolic and Eliquis * Telemonitor * Looks like she sees Dr. Cuevas for cardiology * HR looks to be controlled (5) Anemia: Code(s): D64.9 - Anemia, unspecified Status: Acute Assessment and Plan: * H/H 9.3/26.4 * Anemia labs Iron 75, TIBC 318% saturation 24, transferrin 209, ferritin 104 * Supplement as indicated * Seems to be relatively stable at this time * transfuse if HGB is <7.0 * Could be secondary to acute blood loss, chronic disease, iron deficiency, medication induced, fluid overload Plan thank you for allowing us to participate on case please call us with any questions you may have HPI Data of Consult Consult date: 12/02/21 Requesting Physician: Dominick Arechiga MD Primary Care Provider: Iliana Huynh, Consult Narrative Reason for consult: Medical management Narrative: 12/02/21 9522 Ileana Moon is a 76 year old female with a past medical HTN, Hypothyroidism, depression who presented with for an elective R. TKA with Dr. Arechiga on 12/01/21. She stated that she is doing ok today. After some questioning she stated That she does feel very off today and kind of weak. She denies any chest pain, shortness of breath, nausea, vomiting, diarrhea, constipation, weakness or fatigue however she did say that she has not been to the bathroom and a few days. She also stated that she is fuzzy in the head but she has not done anything either so she is little worried that she might have more symptoms but because she has got out of bed or done much she is unknown of any other symptoms at this time. Wound looks okay at this time. It is a bit swollen and bruised. Patient did ask about the swelling however it seems relatively normal to me. Hemoglobin hematocrit are a little low could be from acute blood loss anemia however will check anemia labs for further investigation. Sodium was 120 this morning. urine studies have been ordered. Will await further results before nephrology consult. hospitalist service is being consulted for medical management and hyponatremia Review of Systems Review of Systems: All systems reviewed & are unremarkable except as noted in HPI and below
[2021-12-02 08:41] LABS: Thyroid Stimulating Hormone Reflex 0.675 uIU/mL (0.465-4.68)
[2021-12-02 09:20] LABS: Folic Acid 14.8 ng/mL (2.76->20)
--- NOTE | 2021-12-02 09:47 | WPDANESPN ---
Anes - Prog Note Post-Op Date/Time: 12/02/21 09:47 Vital Signs: Last Vital Signs Temp 36.2 C L 12/02/21 05:02 Pulse 89 12/02/21 08:30 Resp 20 12/02/21 05:02 BP 100/58 L 12/02/21 08:30 Pulse Ox 99 12/02/21 05:02 O2 Del Method Room Air 12/01/21 19:43 O2 Flow Rate 2 12/01/21 11:43 Pain Score (VAS): 0 I/O: Intake & Output 12/01/21 12/02/21 12/02/21 23:59 07:59 15:59 Intake Total 640 550 480 Output Total 900 Balance 640 -350 480 Laboratory Tests 12/02/21 05:19 12/02/21 05:19 12/01/21 12/02/21 12/02/21 11:52 05:19 05:19 WBC 11.5 H RBC 2.86 L Hgb 9.3 L D Hct 26.9 L MCV 94.1 MCH 32.5 MCHC 34.6 RDW 12.0 Plt Count 142 L MPV 10.8 H Immature Gran % (Auto) 0.5 Neut % (Auto) 83.0 H Lymph % (Auto) 6.2 L [place] % (Auto) 9.8 H Eos % (Auto) 0.3 Baso % (Auto) 0.2 Lymph # (Auto) 0.71 L [place] # (Auto) 1.1 H Eos # (Auto) 0.0 Baso # (Auto) 0.0 Abs Immat Gran (auto) 0.06 H Absolute Neuts (auto) 9.6 H Absolute Nucleated RBC 0.0 Nucleated RBC % 0.0 % Immature Plt Fraction 7.0 Sodium 120 L Potassium 4.2 Chloride 92 L Carbon Dioxide 23 Anion Gap 5 L BUN 12 D Creatinine 0.70 0.50 L Estim Creat Clear Calc 52 71 Estimated GFR > 60 > 60 Glucose 121 H Calcium 8.1 L Iron TIBC % Saturation Transferrin Ferritin Lactate Dehydrogenase NT-Pro-B Natriuret Pep Vitamin B12 Folate TSH (Reflex) 12/02/21 12/02/21 12/02/21 07:31 07:31 07:31 WBC RBC Hgb Hct MCV MCH MCHC RDW Plt Count MPV Immature Gran % (Auto) Neut % (Auto) Lymph % (Auto) [place] % (Auto) Eos % (Auto) Baso % (Auto) Lymph # (Auto) [place] # (Auto) Eos # (Auto) Baso # (Auto) Abs Immat Gran (auto) Absolute Neuts (auto) Absolute Nucleated RBC Nucleated RBC % % Immature Plt Fraction Sodium Potassium Chloride Carbon Dioxide Anion Gap BUN Creatinine Estim Creat Clear Calc Estimated GFR Glucose Calcium Iron 75 TIBC 318 % Saturation 24 Transferrin 209 Ferritin 104.00 Lactate Dehydrogenase 370 NT-Pro-B Natriuret Pep 1110 H Vitamin B12 452.0 Folate 14.8 TSH (Reflex) 0.675 Patient Feedback: Patient satisfied with anesthetic care.
[2021-12-02 11:33] LABS: Urea Random Urine 542 MG/DL
[2021-12-02 11:34] LABS: Sodium Urine Random 17 meq/L
--- NOTE | 2021-12-02 12:37 | PM.PNORT ---
Progress Note: A&P Assessment and Plan (1) S/P total knee arthroplasty: Code(s): Z96.659 - Presence of unspecified artificial knee joint Status: Acute Plan POD 1 STABLE. SHE WILL REMAIN AT LEAST ONE MORE NIGHT IN ORDER TO RESOLVE HER HYPONATREMIA AND SHE IS HAVING SLOW PROGRESS WITH PT. Subjective Subjective Date/Time Seen: 12/02/21 12:37 POD 1 DOING WELL, HAVING SOME ISSUES WITH HYPONATREMIA, AND PAIN CONTROL. NO CALF PAIN Exam Extrem: Other: VSS AFEBRILE DRESSING DRY NV INTACT NEG HOMANS SIGN CALF SOFT NON TENDER Objective Data Vital Signs Vital Signs: Vital Signs - 24 hr 12/01/21 13:35 12/01/21 13:10 12/01/21 13:10 Temperature 36.6 C Pulse Rate 98 Respiratory Rate 14 Blood Pressure 124/64 Pulse Oximetry 98 Oxygen Delivery Room Air Room Air 12/01/21 17:02 12/01/21 19:23 12/01/21 19:43 Temperature 36.6 C Pulse Rate 93 Respiratory Rate 15 Blood Pressure 125/77 Pulse Oximetry 100 96 Oxygen Delivery Room Air Room Air 12/01/21 21:02 12/02/21 01:02 12/02/21 05:02 Temperature 36.4 C 36.4 C 36.2 C L Pulse Rate 92 92 97 Respiratory Rate 20 20 20 Blood Pressure 112/65 112/65 117/50 L Pulse Oximetry 98 98 99 Oxygen Delivery 12/02/21 08:25 12/02/21 08:30 12/02/21 10:26 Temperature 36.4 C Pulse Rate 85 89 80 Respiratory Rate 16 Blood Pressure 100/58 L 125/55 L Pulse Oximetry 96 Oxygen Delivery 12/02/21 10:27 12/02/21 10:27 12/02/21 08:25 Temperature 36.4 C 36.4 C Pulse Rate 80 80 Respiratory Rate 16 16 Blood Pressure 120/55 L 115/50 L Pulse Oximetry 96 96 Oxygen Delivery Room Air Intake/Output Intake/Output: Intake & Output 11/29/21 11/30/21 12/01/21 12/02/21 23:59 23:59 23:59 23:59 Intake Total 1190 1330 Output Total 900 Balance 1190 430 Meds/Results Medications: Active Medications Generic Name Dose Route Start Last Admin Trade Name Freq PRN Reason Stop Dose Admin Acetaminophen 650 mg 12/01/21 12:39 Acetaminophen 325 Mg Tablet PO Q4H PRN Mild Pain (1-3) or Fever Amlodipine Besylate 10 mg 12/02/21 09:00 12/02/21 09:40 Amlodipine Besylate 5 Mg Tablet PO Not Given QAM STEPHANIE Apixaban 5 mg 12/01/21 17:00 12/02/21 08:26 Apixaban 5 Mg Tablet PO 5 mg BID STEPHANIE Administration Budesonide 3 mg 12/01/21 11:17 Budesonide 3 Mg Cap.Sr.24h PO TID PRN Diarrhea Calcium Carbonate 500 mg 12/01/21 21:00 12/01/21 20:59 Calcium/Vitamin D 500 Mg Tablet PO 500 mg HS STEPHANIE Administration Celecoxib 200 mg 12/01/21 17:00 12/02/21 08:26 Celecoxib 200 Mg Capsule PO 200 mg BIDWM STEPHANIE Administration Diazepam 5 mg 12/01/21 11:17 12/01/21 22:41 Diazepam (*Crx) 5 Mg Tablet PO 5 mg Q8H PRN Administration Spasms Diphenhydramine HCl 25 mg 12/01/21 11:17 Diphenhydramine Hcl Inj 50 Mg/Ml Vial IV PUSH Q6H PRN Itching Hydrochlorothiazide 25 mg 12/02/21 09:00 Hydrochlorothiazide 25 Mg Tablet PO QAM [facility] Levothyroxine Sodium 100 mcg/ 175 mcg 12/02/21 06:30 12/02/21 06:14 Levothyroxine Sodium 75 mcg PO 175 mcg DAILY@0630 [facility] Administration Losartan Potassium 100 mg 12/02/21 09:00 12/02/21 09:40 Losartan Potassium 100 Mg Tablet PO Not Given DAILY [facility] Naloxone HCl 0.1 mg 12/01/21 11:17 Naloxone Hcl 0.4 Mg/Ml Vial IV PUSH Q2M PRN Opiate Reversal Nebivolol 20 mg 12/02/21 09:00 12/02/21 08:25 Nebivolol Hcl 5 Mg Tablet PO 20 mg QAM [facility] Administration Ondansetron HCl 4 mg 12/01/21 11:17 Ondansetron Inj 4 Mg/2 Ml Vial IV PUSH Q4H PRN Nausea And Vomiting Oxycodone/Acetaminophen 1 tablet 12/01/21 11:17 12/02/21 06:14 Oxycodone/Acetaminophen (*Crx) 5-325 Mg Tablet PO 1 tablet Q4H PRN Administration Pain Rated 4-6 Oxycodone/Acetaminophen 2 tablet 12/01/21 11:17 Oxycodone/Acetaminophen (*Crx) 5-325 Mg Tablet PO Q6H PRN Pain Rated 7-10
[2021-12-02] MEDS: FUROSEMIDE INJ 40 MG/4 ML VIAL 20 MG IV PUSH (17:55)
[2021-12-03] VITALS (12 sets, daily range): BP systolic 101–126; BP diastolic 51–66; PULSE 80–121; RESP 16–20; TEMP 36.6–37.1; O2SAT 95–99
[2021-12-03] MEDS: oxyCODONE/ACETAMINOPHEN (*CRX) 5-325 MG TABLET 1 TABLET PO (02:22)
[2021-12-03] MEDS: LORazepam INJ (*CRX) 2 MG/ML VIAL 1 MG IV PUSH (03:15)
[2021-12-03 06:30] LABS: Basophils Percent Auto 0.2 % (0.2-1.2); Eosinophils Percent Auto 0.1 % (0-4.4); Hematocrit 22.6 % (37.0-47.0); Immature Granulocyte Absolute 0.03 K/mm3 (0.00-0.031); Immature Granulocyte Percent A 0.3 % (0-0.5); Immature Platelet Fraction Pct 8.4 % (0.9-11.2); Lymphocytes Absolute Auto 0.64 K/mm3 (0.9-3.2); Lymphocytes Percent Auto 6.7 % (18.3-44.2); Mean Corpuscular HGB Conc 35.4 g/dl (32-36); Mean Corpuscular Hemoglobin 32.3 pg (26-34); Mean Corpuscular Volume 91.1 fl (80-100); Mean Platelet Volume 11.2 fl (7.4-10.4); Monocytes Absolute Auto 1.3 K/mm3 (0.1-0.6); Monocytes Percent Auto 13.2 % (2.6-8.5); Neutrophils Absolute Auto 7.6 K/mm3 (1.3-6.7); Neutrophils Percent Auto 79.5 % (45.5-73.1); Platelet Count Result 144 k/mm3 (150-375); Red Blood Count 2.48 M/mm3 (4.2-5.4); White Blood Count 9.5 K/mm3 (4.5-10.0)
[2021-12-03 06:51] LABS: Alanine Aminotransferase 14 U/L (6-35); Albumin Level 3.2 g/dL (3.5-5.1); Alkaline Phosphatase 66 U/L (38-126); Anion Gap 3 mmol/L (8-16); Aspartate Amino Transferase 33 U/L (14-36); Bilirubin,Total 1.1 mg/dL (0.2-1.3); Blood Urea Nitrogen 11 mg/dL (7-17); Calcium 7.9 mg/dL (8.4-10.2); Carbon Dioxide 27 mmol/L (22-30); Chloride 86 mmol/L (98-107); Estimated CRCL calculation 71 ml/min; Estimated Glomerular Filt Rate > 60; Glucose 126 mg/dL (65-110); Magnesium 1.6 mg/dL (1.6-2.3); Potassium 4.1 mmol/L (3.4-5.0); Sodium 116 mmol/L (137-145)
--- NOTE | 2021-12-03 06:52 | ECG_ITS ---
Measurements Intervals [place] Rate: 91 P: VT: 0 QRS: 57 QRSD: 104 T: 33 QT: 361 QTc: 445 Interpretive Statements ATRIAL FIBRILLATION COMPARED TO ECG 01/06/2021 17:28:48 ATRIAL FIBRILLATION NOW PRESENT Electronically Signed On 12-03-2021 18:04:50 CDT by Roxanne Hernandez M.D.
[2021-12-03] MEDS: SODIUM CHLORIDE 0.9% IV 1,000 ML 999 ML IV CONT (09:02)
[2021-12-03] MEDS: MAGNESIUM SULF 2 GM/WATER 50ML 2 GM/50 ML BAG IVPB (09:03)
[2021-12-03] MEDS: NEBIVOLOL HCL 5 MG TABLET 20 MG PO (09:21)
--- NOTE | 2021-12-03 09:21 | PM.PNORT ---
Progress Note: A&P Assessment and Plan (1) S/P total knee arthroplasty: Code(s): Z96.659 - Presence of unspecified artificial knee joint Status: Acute Assessment and Plan: POD #2 : Right TKA Continue PT/OT. WBAT. Walker. HIGH FALL RISK. Continue pain control. Ice knee. Protect skin. DVT prophylaxis with resumed Eliquis. SCDs. Incentive Spirometry Use reviewed. Monitor Dressing. Change prior to discharge. Bowel Regimen. Dispo: Home with Home Health vs. [facility] pending progress with PT/OT (2) Magnesium deficiency: Code(s): E61.2 - Magnesium deficiency Status: Acute (3) Hyponatremia: Code(s): E87.1 - Hypo-osmolality and hyponatremia Status: Acute Assessment and Plan: Sodium 116 today. Hospitalist following. Nephrology consult noted. Appreciate recommendations. Subjective Subjective Date/Time Seen: 12/03/21 09:21 Post Op day: 2 Principal diagnosis: Right Knee DJD Interval history: POD #1: Right TKA Patient doing well aside from hyponatremia. Difficulty with muscle spasms. Still with concern regarding discharge plan as she lives alone. No other concerns today. Review of Systems Review of Systems: All systems reviewed & are unremarkable except as noted in HPI and below Constitutional: Constitutional: Denies fever(s) and Denies headache(s) ENT: Denies headache(s) Cardiovascular: Cardiovascular: Denies chest pain, Denies diaphoresis, Denies palpitations and Denies dyspnea Respiratory: Respiratory: Denies dyspnea Gastrointestinal: Gastrointestinal: Denies abdominal pain, Denies constipation, Denies nausea and Denies vomiting Genitourinary: Genitourinary: Reports nocturia and Denies dysuria Musculoskeletal: Musculoskeletal: Reports arthralgias (Right Knee ) and Reports joint swelling (Right Knee ) Neurologic: Denies headache(s) Endocrine: Endocrine: Denies palpitations Exam Const: General: comfortable and no acute distress Resp: Effort & Inspection: normal respiratory effort Cardio: Rate: regular rate Rhythm: regular rhythm GI: GI Palp: Yes Soft to palpation, No Tenderness to palpation present (GI) and No Guarding due to palpation present (GI) Skin: Wounds: wounds noted Other: Incision c/d/i. No surrounding redness/warmth. No hematoma. Mild ecchymosis. No wound dehiscence Neuro: Cognition (Neuro): normal cognition Other: NV intact aside from block. Moves toes. Sensation intact to light touch. +ankle dorsiflexion/plantarflexion. Extrem: Right lower extremity: normal to inspection, knee Details: tenderness (diffuse, mild ), swelling (diffuse, consistent with surgical intervention ), abnormal ROM Details: pain with active ROM during, pain with passive ROM during and with range as follows (limited due to recent surgical intervention ); able to extend lower leg actively and ecchymosis (mild ), lower leg (Negative Kayce's Sign ) Details: normal to inspection; no erythema and no tenderness, ankle (+ankle dorsiflexion/plantarflexion ) Details: normal to inspection, no edema and normal ROM; no tenderness, no swelling and no ecchymosis and foot Details: normal capillary refill, normal to inspection, vascular exam Details: dorsalis pedis pulse present and motor-sensory exam Details: light-touch normal; no tenderness Left lower extremity: normal to inspection Psych: Mental Status: mental status grossly normal Objective Data Vital Signs Vital Signs: Vital Signs - 24 hr 12/02/21 10:26 12/02/21 10:27 12/02/21 10:27 Temperature 36.4 C 36.4 C 36.4 C Pulse Rate 80 80 80 Respiratory Rate 16 16 16 Blood Pressure 125/55 L 120/55 L 115/50 L Pulse Oximetry 96 96 96 Oxygen Delivery 12/02/21 12:00 12/02/21 12:47 12/02/21 13:57 Temperature 36.2 C L Pulse Rate 80 112 H Respiratory Rate 16 20 Blood Pressure 100/55 L 92/59 L Pulse Oximetry 100 Oxygen Delivery 12/02/21 16:35 12/02/21 17:00 12/02/21 18:20 Temperature 36.3 C L Pulse
[2021-12-03] MEDS: LEVOTHYROXINE SODIUM 100 MCG, LEVOTHYROXINE SODIUM 75 MCG 175 MCG PO (09:26)
[2021-12-03] MEDS: SENNA/DOCUSATE SODIUM TABLET 2 TAB PO ×2 (09:28→17:50)
[2021-12-03] MEDS: CELECOXIB 200 MG CAPSULE PO ×2 (09:28→17:51)
[2021-12-03] MEDS: CHOLECALCIFEROL 1,000 UNITS TABLET 2000 UNITS PO (09:28)
[2021-12-03] MEDS: APIXABAN 5 MG TABLET PO ×2 (09:28→17:50)
[2021-12-03] MEDS: diazePAM (*CRX) 5 MG TABLET PO ×2 (09:37→20:19)
--- NOTE | 2021-12-03 11:30 | PM.IMPN ---
Progress Note: A&P Assessment and Plan (1) S/P total knee arthroplasty: Code(s): Z96.659 - Presence of unspecified artificial knee joint Status: Acute Assessment and Plan: POD 2 Post op care per orthopedic surgery cefazolin x 3 bags Pain medications: Percocet 1 tab Q4H PRN or 2 Tab Q6H PRN Antiemetics: Zofran PT/OT DVT Eliquis (2) Hyponatremia: Code(s): E87.1 - Hypo-osmolality and hyponatremia Status: Acute Assessment and Plan: Na 116 Urine sodium 12, creatinine 542, urea 67.0, or osmolality still pending Give one liter bolus, maintenance fluids at 100ml/hr Recheck sodium Q6H for 24 hours FENa score 0.1%, indication of fluid deficit BNP 1116 Raise sodium 6 to 8 per 24 hour period Trend labs Labs in the am Tele monitor Nephrology consult thank you for your help (3) Hypertension: Code(s): I10 - Essential (primary) hypertension Status: Acute Assessment and Plan: Current BP 115/53 Continue home amlodipine 10mg PO daily, Losartan 100mg PO Daily, Bystolic 20mg PO Daily Trend BP adjust therapy as indicated (4) Atrial fibrillation: Code(s): I48.91 - Unspecified atrial fibrillation Status: Acute Assessment and Plan: History of a fib Continue home Bystolic and Eliquis Telemonitor Looks like she sees Dr. Cuevas for cardiology HR is in the 120s EKG ordered (5) Anemia: Code(s): D64.9 - Anemia, unspecified Status: Acute Assessment and Plan: H/H 8.0/22.6 Anemia labs Iron 75, TIBC 318% saturation 24, transferrin 209, ferritin 104 Supplement as indicated Seems to be relatively stable at this time transfuse if HGB is <7.0 Could be secondary to acute blood loss, chronic disease, iron deficiency, medication induced, fluid overload (6) Magnesium deficiency: Code(s): E61.2 - Magnesium deficiency Status: Acute Assessment and Plan: Mg 1.6 Replace with 2gms once Trend labs Labs in the am Time Spent With Patient Time with patient: Greater than 35 minutes Subjective Date/time seen: 12/03/21 1130 Interval history: 12/03/21 113 patient is doing okay today. Patient stated that she had muscle spasm throughout the whole night and that they did give her Valium which did help with the muscle spasms. Did talk to her about her sodium being lower than yesterday at 1:16 a.m.. Also talked to the patient about possibly needing blood since the patient is very pale and her hemoglobin has dropped to 8. Patient currently denies any chest pain, shortness breast, nausea, vomiting, diarrhea, constipation, weakness or fatigue. 12/02/21 0830 Ileana Moon is a 76 year old female with a past medical HTN, Hypothyroidism, depression who presented with for an elective R. TKA with Dr. Arechiga on 12/01/21.? She stated that she is doing ok today.? After some questioning she stated That she does feel very off today and kind of weak.? She denies any chest pain, shortness of breath, nausea, vomiting, diarrhea, constipation, weakness or fatigue however she did say that she has not been to the bathroom and a few days.? She also stated that she is fuzzy in the head but she has not done anything either so she is little worried that she might have more symptoms but because she has got? out of bed or done much she is? unknown of any other symptoms at this time.? Wound looks okay at this time.? It is a bit swollen and bruised.? Patient did ask about the swelling however it seems relatively normal to me.? Hemoglobin hematocrit are a little low could be from acute blood loss anemia however will check anemia labs for further investigation.? Sodium was 120 this morning.? ? urine studies have been ordered.? Will await further results before nephrology consult. Review of Systems Review of Systems: All systems reviewed & are unremarkable except as
--- NOTE | 2021-12-03 11:30 | P.PNIM_ITS ---
Progress Note: A&P Assessment and Plan (1) S/P total knee arthroplasty: Code(s): Z96.659 - Presence of unspecified artificial knee joint Status: Acute Assessment and Plan: * POD 2 * Post op care per orthopedic surgery * cefazolin x 3 bags * Pain medications: Percocet 1 tab Q4H PRN or 2 Tab Q6H PRN * Antiemetics: Zofran * PT/OT * DVT Eliquis (2) Hyponatremia: Code(s): E87.1 - Hypo-osmolality and hyponatremia Status: Acute Assessment and Plan: * Na 116 * Urine sodium 12, creatinine 542, urea 67.0, or osmolality still pending * Give one liter bolus, maintenance fluids at 100ml/hr * Recheck sodium Q6H for 24 hours * FENa score 0.1%, indication of fluid deficit * BNP 1116 * Raise sodium 6 to 8 per 24 hour period * Trend labs * Labs in the am * Tele monitor * Nephrology consult thank you for your help (3) Hypertension: Code(s): I10 - Essential (primary) hypertension Status: Acute Assessment and Plan: * Current BP 115/53 * Continue home amlodipine 10mg PO daily, Losartan 100mg PO Daily, Bystolic 20mg PO Daily * Trend BP * adjust therapy as indicated (4) Atrial fibrillation: Code(s): I48.91 - Unspecified atrial fibrillation Status: Acute Assessment and Plan: * History of a fib * Continue home Bystolic and Eliquis * Telemonitor * Looks like she sees Dr. Cuevas for cardiology * HR is in the 120s * EKG ordered (5) Anemia: Code(s): D64.9 - Anemia, unspecified Status: Acute Assessment and Plan: * H/H 8.0/22.6 * Anemia labs Iron 75, TIBC 318% saturation 24, transferrin 209, ferritin 104 * Supplement as indicated * Seems to be relatively stable at this time * transfuse if HGB is <7.0 * Could be secondary to acute blood loss, chronic disease, iron deficiency, medication induced, fluid overload (6) Magnesium deficiency: Code(s): E61.2 - Magnesium deficiency Status: Acute Assessment and Plan: * Mg 1.6 * Replace with 2gms once * Trend labs * Labs in the am Time Spent With Patient Time with patient: Greater than 35 minutes Subjective Date/time seen: 12/03/21 1130 Interval history: 12/03/21 1130 patient is doing okay today. Patient stated that she had muscle spasm throughout the whole night and that they did give her Valium which did help with the muscle spasms. Did talk to her about her sodium being lower than yesterday at 1:16 a.m.. Also talked to the patient about possibly needing blood since the patient is very pale and her hemoglobin has dropped to 8. Patient currently denies any chest pain, shortness breast, nausea, vomiting, diarrhea, constipation, weakness or fatigue. 12/02/21 0830 Ileana Moon is a 76 year old female with a past medical HTN, Hypothyroidism, depression who presented with for an elective R. TKA with Dr. Arechiga on 12/01/21.? She stated that she is doing ok today.? After some questioning she stated That she does feel very off today and kind of weak.? She denies any chest pain, shortness of breath, nausea, vomiting, diarrhea, constipation, weakness or fatigue however she did say that she has not been to the bathroom and a few days.? She also stated that she is fuzzy in the head but she has not done anything either so she is little worried that she might have more symptoms but because she has got? out of bed or done mu
[2021-12-03] MEDS: SODIUM CHLORIDE 0.9% IV 1,000 ML 100 ML IV CONT (11:43)
--- NOTE | 2021-12-03 12:57 | PM.CNNEP ---
Assessment and Plan Assessment and plan (1) Hyponatremia: Code(s): E87.1 - Hypo-osmolality and hyponatremia Status: Acute Assessment and Plan: acute on chronic sodium ranges from 126 - 132 in the last year urine electrolytes suggest pre-renal azotemia improvement in sodium with normal saline IVFs seems to support this goal of therapy is rate of change of 4 - 6mmol/L in 24 hours (but not to exceed 8mmol/L) follow up on serum/urine osmolality follow trend of repeat sodium levels (2) S/P total knee arthroplasty: Code(s): Z96.659 - Presence of unspecified artificial knee joint Status: Acute Assessment and Plan: post-op care as outlined by Orthopedic surgery pain control PT/OT DVT prophylaxis (3) Hypertension: Code(s): I10 - Essential (primary) hypertension Status: Acute Assessment and Plan: reasonable control follow trend of hemodynamics continue current medications Will continue to follow. History of Present Illness Reason for Consult Consult date: 12/03/21 Reason for consult: hyponatremia Chief Complaint Chief complaint: Right Knee DJD, right shoulder DJD History of Present Illness Narrative: The patient's same 6-year-old female with a past medical history as outlined below who initially presented to [facility] for elective right total knee arthroplasty by Orthopedic surgery. She subsequently underwent this procedure without any acute issues or problems is noted postoperatively that her sodium level was quite low. The hospitalists were consulted for this issue. Following her operative intervention, the patient stated she did feel off but was unable to elaborate much more this other than generalized weakness. She had no complaints of chest pain, shortness of breath, nausea, vomiting, diarrhea, constipation or any other significant symptoms other than pain at her operative so site. Her sodium level was noted to be at 120mmol/L postprocedure. Renal consultation was requested for further evaluation of her hyponatremia. From review her records, the patient has had some degree of chronic hyponatremia ranging anywhere from 126-134 millimoles per L in the last year. With just IV fluid resuscitation, her sodium level has already improved arguing in favor of a component of volume depletion / dehydration. She has several risk factors for hyponatremia including the use of hydrochlorothiazide diuretics as well as narcotics all of which could potentiate if not worsen hyponatremia in general. She does not appear to be on any type of anti seizure medications or SSRIs at this time. Currently, the time my visit, she does not appear to be in acute distress. Review of Systems Review of Systems: As per HPI. [facility] Past Medical History Medical History (Updated 12/05/21 @ 14:00 by BIENVENIDO Wheeler) Age related osteoporosis Anemia Arthritis Arthritis of right shoulder region Atrial fibrillation Basal cell carcinoma BMI between 19-24,adult Cancer Colitis Degenerative arthritis of knee, bilateral Depression Essential hypertension Family history of colon cancer Headache, migraine Hiatal hernia High cholesterol Hypertension Left knee DJD Right knee DJD Thyroid cancer UTI (urinary tract infection) Surgical History Surgical History Arthritis of carpometacarpal (CMC) joint of right thumb suspension arthroplasty H/O knee surgery scope, 2010 H/O shoulder surgery History of appendectomy History of arthroscopy of knee History of basal cell carcinoma (BCC) excision History of bilateral carpal tunnel release History of cataract extraction History of section History of hernia repair History of hysterectomy History of thyroidectomy History of tonsillectomy History of Zenker's diverticulum removal S/P total knee arthroplasty Family History Family History (Reviewed
[2021-12-03 14:34] LABS: Sodium 119 mmol/L (137-145)
[2021-12-03 20:34] LABS: Sodium 119 mmol/L (137-145)
[2021-12-03] MEDS: ACETAMINOPHEN 325 MG TABLET 650 MG PO (21:51)
[2021-12-03] MEDS: SODIUM CHLORIDE 0.9% IV 1,000 ML 60 ML IV CONT (21:52)
[2021-12-04] VITALS (16 sets, daily range): BP systolic 97–114; BP diastolic 37–65; PULSE 73–111; RESP 18–20; TEMP 36.4–37.1; O2SAT 98–100
[2021-12-04 02:00] LABS: Sodium 122 mmol/L (137-145)
[2021-12-04] MEDS: LEVOTHYROXINE SODIUM 100 MCG, LEVOTHYROXINE SODIUM 75 MCG 175 MCG PO (06:40)
[2021-12-04 07:27] LABS: Alanine Aminotransferase 14 U/L (6-35); Albumin Level 3.2 g/dL (3.5-5.1); Alkaline Phosphatase 70 U/L (38-126); Anion Gap 4 mmol/L (8-16); Aspartate Amino Transferase 30 U/L (14-36); Bilirubin,Total 0.7 mg/dL (0.2-1.3); Blood Urea Nitrogen 6 mg/dL (7-17); Calcium 7.8 mg/dL (8.4-10.2); Carbon Dioxide 22 mmol/L (22-30); Chloride 97 mmol/L (98-107); Estimated CRCL calculation 86 ml/min; Estimated Glomerular Filt Rate > 60; Glucose 122 mg/dL (65-110); Phosphorus 2.5 mg/dL (2.5-4.5); Potassium 4.3 mmol/L (3.4-5.0); Sodium 123 mmol/L (137-145)
[2021-12-04 08:42] LABS: Basophils Percent Auto 0.2 % (0.2-1.2); Eosinophils Percent Auto 0.5 % (0-4.4); Immature Granulocyte Absolute 0.02 K/mm3 (0.00-0.031); Immature Granulocyte Percent A 0.4 % (0-0.5); Immature Platelet Fraction Pct 6.5 % (0.9-11.2); Lymphocytes Percent Auto 8.8 % (18.3-44.2); Mean Corpuscular HGB Conc 33.8 g/dl (32-36); Mean Corpuscular Hemoglobin 32.1 pg (26-34); Mean Corpuscular Volume 94.8 fl (80-100); Mean Platelet Volume 10.7 fl (7.4-10.4); Monocytes Absolute Auto 0.7 K/mm3 (0.1-0.6); Monocytes Percent Auto 11.7 % (2.6-8.5); Neutrophils Absolute Auto 4.4 K/mm3 (1.3-6.7); Neutrophils Percent Auto 78.4 % (45.5-73.1); Platelet Count Result 139 k/mm3 (150-375); Red Blood Count 2.12 M/mm3 (4.2-5.4); Red Cell Distribution Width 12.7 % (11.5-14.5); White Blood Count 5.7 K/mm3 (4.5-10.0)
[2021-12-04 08:48] LABS: Hematocrit 20.1 % (37.0-47.0); Hemoglobin 6.8 g/dL (12.0-15.0)
[2021-12-04] MEDS: BUDESONIDE 3 MG CAP.SR.24H PO (08:59)
[2021-12-04] MEDS: CELECOXIB 200 MG CAPSULE PO ×2 (09:00→17:29)
[2021-12-04] MEDS: CHOLECALCIFEROL 1,000 UNITS TABLET 2000 UNITS PO (09:00)
[2021-12-04] MEDS: SENNA/DOCUSATE SODIUM TABLET 2 TAB PO (09:00)
[2021-12-04] MEDS: LOSARTAN POTASSIUM 100 MG TABLET PO (09:01)
[2021-12-04] MEDS: NEBIVOLOL HCL 5 MG TABLET 20 MG PO (09:01)
[2021-12-04] MEDS: APIXABAN 5 MG TABLET PO ×2 (09:01→17:29)
[2021-12-04] MEDS: amLODIPine BESYLATE 5 MG TABLET 10 MG PO (09:01)
--- NOTE | 2021-12-04 10:26 | PM.PNORT ---
Progress Note: A&P Assessment and Plan (1) S/P total knee arthroplasty: Code(s): Z96.659 - Presence of unspecified artificial knee joint Status: Acute Assessment and Plan: POD #3 : Right TKA Continue PT/OT. WBAT. Walker. HIGH FALL RISK. Continue pain control. Ice knee. Protect skin. Edema control. DVT prophylaxis with resumed Eliquis. SCDs. Incentive Spirometry Use reviewed. Monitor Dressing. Change prior to discharge. Bowel Regimen. hyponatremia improving. Continued anemia. Plan for rehab when stable. (2) Magnesium deficiency: Code(s): E61.2 - Magnesium deficiency Status: Acute (3) Hyponatremia: Code(s): E87.1 - Hypo-osmolality and hyponatremia Status: Acute Subjective Subjective Date/Time Seen: 12/04/21 10:26 Post Op day: 3 Principal diagnosis: Right total knee Interval history: Awake, alert, up in chair. No pain at knee. Exam Const: General: comfortable and no acute distress Resp: Effort & Inspection: normal respiratory effort Cardio: Rate: regular rate Rhythm: regular rhythm GI: GI Palp: Yes Soft to palpation Skin: Other: Incision c/d/i. No surrounding redness/warmth. No hematoma. Mild ecchymosis. No wound dehiscence Neuro: Cognition (Neuro): normal cognition Other: NV intact aside from block. Moves toes. Sensation intact to light touch. +ankle dorsiflexion/plantarflexion. Extrem: Right lower extremity: normal to inspection, knee Details: tenderness (diffuse, mild ), swelling (diffuse, consistent with surgical intervention ), abnormal ROM Details: pain with active ROM during, pain with passive ROM during and with range as follows (limited due to recent surgical intervention ); able to extend lower leg actively, ecchymosis (mild ) and other (no erythema); no unusual warmth, lower leg (Negative Kayce's sign ) Details: normal to inspection; no erythema and no tenderness, ankle (+ankle dorsiflexion/plantarflexion ) Details: normal to inspection, no edema and normal ROM; no tenderness, no swelling and no ecchymosis and foot Details: normal capillary refill, normal to inspection, vascular exam Details: dorsalis pedis pulse present and motor-sensory exam Details: light-touch normal; no tenderness Left lower extremity: normal to inspection Other: right knee with postoperative dressing over incision. No signs of infection Psych: Mental Status: mental status grossly normal Objective Data Vital Signs Vital Signs: Vital Signs - 24 hr 12/03/21 10:28 12/03/21 14:40 12/03/21 16:00 Temperature 98.1 F 98.4 F Pulse Rate 83 80 106 H Respiratory Rate 20 16 Blood Pressure 111/66 107/60 Pulse Oximetry 96 97 Oxygen Delivery 12/03/21 12:01 12/03/21 18:33 12/03/21 21:01 Temperature 98.8 F 98 F Pulse Rate 97 88 100 Respiratory Rate 18 20 Blood Pressure 126/51 L 126/52 L Pulse Oximetry 95 98 Oxygen Delivery 12/03/21 20:00 12/03/21 20:00 12/04/21 00:15 Temperature 97.6 F Pulse Rate 101 H 85 Respiratory Rate 20 Blood Pressure 108/61 Pulse Oximetry 98 Oxygen Delivery Room Air 12/04/21 03:23 12/04/21 00:00 12/04/21 04:00 Temperature 97.8 F Pulse Rate 97 111 H 96 Respiratory Rate 18 Blood Pressure 112/55 L Pulse Oximetry 98 Oxygen Delivery Intake/Output Intake/Output: Intake & Output 12/01/21 12/02/21 12/03/21 12/04/21 23:59 23:59 23:59 23:59 Intake Total 1190 1810 2812 630 Output Total 900 Balance 2167 376 4337 630 Meds/Results Medications: Active Medications Generic Name Dose Route Start Last Admin Trade Name Freq PRN Reason Stop Dose Admin Acetaminophen 650 mg 12/01/21 12:39 12/03/21 21:51 Acetaminophen 325 Mg Tablet PO 650 mg Q4H PRN Administration Mild Pain (1-3) or Fever Amlodipine Besylate 10 mg 12/02/21 09:00 12/04/21 09:01 Amlodipine Besylate 5 Mg Tablet PO 10 mg QAM STEPHANIE Administration Apixaban 5 mg 12/01/21 17:00 12/04/21 09:01
--- NOTE | 2021-12-04 11:00 | P.PNIM_ITS ---
Progress Note: A&P Assessment and Plan (1) S/P total knee arthroplasty: Code(s): Z96.659 - Presence of unspecified artificial knee joint Status: Acute Assessment and Plan: * POD 3 * Post op care per orthopedic surgery * cefazolin x 3 bags * Pain medications: Percocet 1 tab Q4H PRN or 2 Tab Q6H PRN * Antiemetics: Zofran * PT/OT * DVT Eliquis (2) Hyponatremia: Code(s): E87.1 - Hypo-osmolality and hyponatremia Status: Acute Assessment and Plan: * Na 123 * Urine sodium 12, creatinine 542, urea 67.0, or osmolality still pending * Give one liter bolus, maintenance fluids at 100ml/hr * Recheck sodium Q6H for 24 hours * FENa score 0.1%, indication of fluid deficit * BNP 1116 * Raise sodium 6 to 8 per 24 hour period * Trend labs * Labs in the am * Tele monitor * Nephrology consult thank you for your help (3) Hypertension: Code(s): I10 - Essential (primary) hypertension Status: Acute Assessment and Plan: * Current BP 103/57 * Continue home amlodipine 10mg PO daily, Losartan 100mg PO Daily, Bystolic 20mg PO Daily * Trend BP * adjust therapy as indicated (4) Atrial fibrillation: Code(s): I48.91 - Unspecified atrial fibrillation Status: Acute Assessment and Plan: * History of a fib * Continue home Bystolic and Eliquis * Telemonitor * Looks like she sees Dr. Cuevas for cardiology * HR is in the 120s * EKG ordered (5) Anemia: Code(s): D64.9 - Anemia, unspecified Status: Acute Assessment and Plan: * H/H 6.38/20.1 * Anemia labs Iron 75, TIBC 318% saturation 24, transferrin 209, ferritin 104 * Supplement as indicated * Seems to be relatively stable at this time * transfuse if HGB is <7.0 * Could be secondary to acute blood loss, chronic disease, iron deficiency, medication induced, fluid overload * Give one unit of PRBC (6) Magnesium deficiency: Code(s): E61.2 - Magnesium deficiency Status: Acute Assessment and Plan: * Mg 2.0 * Replace with 2gms once * Trend labs * Labs in the am Time Spent With Patient Time with patient: Greater than 35 minutes Subjective Date/time seen: 12/04/21 11:00 Interval history: 12/04/21 11:00 Patient is very sad today. She stated that her psychology is not good physically she feels okay she was able to get the shower today however she is in pain and she has for pain 0 she was able to get 1. She denies any chest pain, shortness as of breath, nausea, vomiting, diarrhea, constipation, weakness or fatigue. She also stated that she is kind of worried about getting blood today. She also would like to have visitors however her friends have COVID or were exposed to COVID. Labs are getting better sodium is at 123. 12/03/21 1130 patient is doing okay today. Patient stated that she had muscle spasm throughout the whole night and that they did give her Valium which did help with the muscle spasms. Did talk to her about her sodium being lower than yesterday at 1:16 a.m.. Also talked to the patient about possibly needing blood since the patient is very pale and her hemoglobin has dropped to 8. Patient currently denies any chest pain, shortness breast, nausea, vomiting, diarrhea, constipation, weakness or fatigue. 12/02/21 0830 Ileana Moon is a 76 year old female with a past medical HTN, Hypothyroi
--- NOTE | 2021-12-04 11:00 | PM.IMPN ---
Progress Note: A&P Assessment and Plan (1) S/P total knee arthroplasty: Code(s): Z96.659 - Presence of unspecified artificial knee joint Status: Acute Assessment and Plan: POD 3 Post op care per orthopedic surgery cefazolin x 3 bags Pain medications: Percocet 1 tab Q4H PRN or 2 Tab Q6H PRN Antiemetics: Zofran PT/OT DVT Eliquis (2) Hyponatremia: Code(s): E87.1 - Hypo-osmolality and hyponatremia Status: Acute Assessment and Plan: Na 123 Urine sodium 12, creatinine 542, urea 67.0, or osmolality still pending Give one liter bolus, maintenance fluids at 100ml/hr Recheck sodium Q6H for 24 hours FENa score 0.1%, indication of fluid deficit BNP 1116 Raise sodium 6 to 8 per 24 hour period Trend labs Labs in the am Tele monitor Nephrology consult thank you for your help (3) Hypertension: Code(s): I10 - Essential (primary) hypertension Status: Acute Assessment and Plan: Current BP 103/57 Continue home amlodipine 10mg PO daily, Losartan 100mg PO Daily, Bystolic 20mg PO Daily Trend BP adjust therapy as indicated (4) Atrial fibrillation: Code(s): I48.91 - Unspecified atrial fibrillation Status: Acute Assessment and Plan: History of a fib Continue home Bystolic and Eliquis Telemonitor Looks like she sees Dr. Cuevas for cardiology HR is in the 120s EKG ordered (5) Anemia: Code(s): D64.9 - Anemia, unspecified Status: Acute Assessment and Plan: H/H 6.38/20.1 Anemia labs Iron 75, TIBC 318% saturation 24, transferrin 209, ferritin 104 Supplement as indicated Seems to be relatively stable at this time transfuse if HGB is <7.0 Could be secondary to acute blood loss, chronic disease, iron deficiency, medication induced, fluid overload Give one unit of PRBC (6) Magnesium deficiency: Code(s): E61.2 - Magnesium deficiency Status: Acute Assessment and Plan: Mg 2.0 Replace with 2gms once Trend labs Labs in the am Time Spent With Patient Time with patient: Greater than 35 minutes Subjective Date/time seen: 12/04/21 11:00 Interval history: 12/04/21 11:00 Patient is very sad today. She stated that her psychology is not good physically she feels okay she was able to get the shower today however she is in pain and she has for pain 0 she was able to get 1. She denies any chest pain, shortness as of breath, nausea, vomiting, diarrhea, constipation, weakness or fatigue. She also stated that she is kind of worried about getting blood today. She also would like to have visitors however her friends have COVID or were exposed to COVID. Labs are getting better sodium is at 123. 12/03/21 1130 patient is doing okay today. Patient stated that she had muscle spasm throughout the whole night and that they did give her Valium which did help with the muscle spasms. Did talk to her about her sodium being lower than yesterday at 1:16 a.m.. Also talked to the patient about possibly needing blood since the patient is very pale and her hemoglobin has dropped to 8. Patient currently denies any chest pain, shortness breast, nausea, vomiting, diarrhea, constipation, weakness or fatigue. 12/02/21 0830 Ileana Moon is a 76 year old female with a past medical HTN, Hypothyroidism, depression who presented with for an elective R. TKA with Dr. Arechiga on 12/01/21.? She stated that she is doing ok today.? After some questioning she stated That she does feel very off today and kind of weak.? She denies any chest pain, shortness of breath, nausea, vomiting, diarrhea, constipation, weakness or fatigue however she did say that she has not been to the bathroom and a few days.? She also stated that she is fuzzy in the head but she has not done anything either so she is little worried that she might have more symptoms but because she has g
[2021-12-04] MEDS: ACETAMINOPHEN 325 MG TABLET 650 MG PO ×2 (11:20→20:20)
--- NOTE | 2021-12-04 12:46 | PM.PNNEP ---
Progress Note: A&P Assessment and Plan (1) Hyponatremia: Code(s): E87.1 - Hypo-osmolality and hyponatremia Status: Acute Assessment and Plan: acute on chronic sodium ranges from 126 - 132 in the last year urine electrolytes suggest pre-renal azotemia improvement in sodium with normal saline IVFs seems to support this goal of therapy is rate of change of 4 - 6mmol/L in 24 hours (but not to exceed 8mmol/L) -- this has been met follow up on serum/urine osmolality follow trend of repeat sodium levels (2) S/P total knee arthroplasty: Code(s): Z96.659 - Presence of unspecified artificial knee joint Status: Acute Assessment and Plan: post-op care as outlined by Orthopedic surgery pain control PT/OT DVT prophylaxis (3) Anemia: Code(s): D64.9 - Anemia, unspecified Status: Acute Assessment and Plan: low H/H noted by AM labs PRBC transfusion today follow trend of H/H (4) Hypertension: Code(s): I10 - Essential (primary) hypertension Status: Acute Assessment and Plan: reasonable control follow trend of hemodynamics continue current medications Will continue to follow. Subjective Date/time seen: 12/04/21 12:46 Somewhat depressed at the time of my visit; concerned about her anemia and PRBC transfusion as well as the fact she has not bounced back from surgery as fast as she thought she would; would like to have visitors but apparently most of them have been exposed to COVID so they cannot visit her. Exam Narrative: General: WD/WN female in NAD Heart: normal S1 and S2; no rub Lungs: clear to auscultation Abdomen: soft, nontender, nondistended, positive bowel sounds Extremities: no cyanosis or clubbing; no edema; right knee with dressings in place Skin: warm and dry Objective Data Vital Signs Vital Signs: Vital Signs Temp Pulse Resp BP Pulse Ox O2 Del Method 12/04/21 08:00 Room Air 12/04/21 14:14 36.9 C 88 18 97/41 L 100 12/04/21 13:50 36.6 C 83 18 100/45 L 100 12/04/21 13:57 36.6 C 83 18 100/45 L 100 12/04/21 10:51 36.8 C 91 18 103/57 L 98 12/04/21 04:00 96 12/04/21 00:00 111 H 12/04/21 03:23 36.6 C 97 18 112/55 L 98 12/04/21 00:15 36.4 C 85 20 108/61 98 12/03/21 20:00 Room Air 12/03/21 20:00 101 H 12/03/21 21:01 36.6 C 100 20 126/52 L 98 12/03/21 18:33 37.1 C 88 18 126/51 L 95 Intake/Output Intake/Output: Intake & Output 12/01/21 12/02/21 12/03/21 12/04/21 23:59 23:59 23:59 23:59 Intake Total 1190 1810 2812 870 Output Total 900 Balance 1841 135 7266 870 Meds/Results Medications: Active Medications Generic Name Dose Route Start Last Admin Trade Name Freq PRN Reason Stop Dose Admin Acetaminophen 650 mg 12/01/21 12:39 12/04/21 11:20 Acetaminophen 325 Mg Tablet PO 650 mg Q4H PRN Administration Mild Pain (1-3) or Fever Amlodipine Besylate 10 mg 12/02/21 09:00 12/04/21 09:01 Amlodipine Besylate 5 Mg Tablet PO 10 mg QAM STEPHANIE Administration Apixaban 5 mg 12/01/21 17:00 12/04/21 17:29 Apixaban 5 Mg Tablet PO 5 mg BID STEPHANIE Administration Budesonide 3 mg 12/01/21 11:17 12/04/21 08:59 Budesonide 3 Mg Cap.Sr.24h PO 3 mg TID PRN Administration Diarrhea Calcium Carbonate 500 mg 12/01/21 21:00 12/03/21 20:19 Calcium/Vitamin D 500 Mg Tablet PO 500 mg HS STEPHANIE Administration Celecoxib 200 mg 12/01/21 17:00 12/04/21 17:29 Celecoxib 200 Mg Capsule PO 200 mg BIDWM STEPHANIE Administration Diazepam 5 mg 12/03/21 10:27 12/03/21 20:19 Diazepam (*Crx) 5 Mg Tablet PO 5 mg Q8H PRN Administration Spasms Diphenhydramine HCl 25 mg 12/01/21 11:17 Diphenhydramine Hcl Inj 50 Mg/Ml Vial IV PUSH Q6H PRN Itching Hydrochlorothiazide 25 mg 12/02/21 09:00 Hydrochlorothiazide 25 Mg Tablet PO QAM STEPHANIE Sodium Chl
--- NOTE | 2021-12-04 12:46 | P.PNNP_ITS ---
Progress Note: A&P Assessment and Plan (1) Hyponatremia: Code(s): E87.1 - Hypo-osmolality and hyponatremia Status: Acute Assessment and Plan: * acute on chronic * sodium ranges from 126 - 132 in the last year * urine electrolytes suggest pre-renal azotemia * improvement in sodium with normal saline IVFs seems to support this * goal of therapy is rate of change of 4 - 6mmol/L in 24 hours (but not to exceed 8mmol/L) -- this has been met * follow up on serum/urine osmolality * follow trend of repeat sodium levels (2) S/P total knee arthroplasty: Code(s): Z96.659 - Presence of unspecified artificial knee joint Status: Acute Assessment and Plan: * post-op care as outlined by Orthopedic surgery * pain control * PT/OT * DVT prophylaxis (3) Anemia: Code(s): D64.9 - Anemia, unspecified Status: Acute Assessment and Plan: * low H/H noted by AM labs * PRBC transfusion today * follow trend of H/H (4) Hypertension: Code(s): I10 - Essential (primary) hypertension Status: Acute Assessment and Plan: * reasonable control * follow trend of hemodynamics * continue current medications Will continue to follow. Subjective Date/time seen: 12/04/21 12:46 Somewhat depressed at the time of my visit; concerned about her anemia and PRBC transfusion as well as the fact she has not bounced back from surgery as fast as she thought she would; would like to have visitors but apparently most of them have been exposed to COVID so they cannot visit her. Exam Narrative: General: WD/WN female in NAD Heart: normal S1 and S2; no rub Lungs: clear to auscultation Abdomen: soft, nontender, nondistended, positive bowel sounds Extremities: no cyanosis or clubbing; no edema; right knee with dressings in place Skin: warm and dry Objective Data Vital Signs Vital Signs: Vital Signs Temp Pulse Resp BP Pulse Ox O2 Del Method 12/04/21 08:00 Room Air 12/04/21 14:14 36.9 C 88 18 97/41 L 100 12/04/21 13:50 36.6 C 83 18 100/45 L 100 12/04/21 13:57 36.6 C 83 18 100/45 L 100 12/04/21 10:51 36.8 C 91 18 103/57 L 98 12/04/21 04:00 96 12/04/21 00:00 111 H 12/04/21 03:23 36.6 C 97 18 112/55 L 98 12/04/21 00:15 36.4 C 85 20 108/61 98 12/03/21 20:00 Room Air 12/03/21 20:00 101 H 12/03/21 21:01 36.6 C 100 20 126/52 L 98 12/03/21 18:33 37.1 C 88 18 126/51 L 95 Intake/Output Intake/Output: Intake & Output 12/01/21 12/02/21 12/03/21 12/04/21 23:59 23:59 23:59 23:59 Intake Total 1190 1810 2812 870 Output Total 900 Balance 7080 154 6934 870 Meds/Results Medications: Active Medications Generic Name Dose Route Start Last Admin Trade Name Dorene PRN Reason Stop Dose Admin Acetaminophen 650 mg 12/01/21 12:39 12/04/21 11:20 Acetaminophen 325 Mg Tablet PO 650 mg Q4H PRN Administration Mild Pain (1-3) or Fever Amlodipine Besylate 10 mg 12/02/21 09:00 12/04/21 09:01 Amlodipine B
[2021-12-04] MEDS: SODIUM CHLORIDE 0.9% IV 250 ML 30 ML IV CONT (13:49)
[2021-12-04 18:33] LABS: Sodium 125 mmol/L (137-145)
[2021-12-04 18:37] LABS: Hematocrit 23.8 % (37.0-47.0); Hemoglobin 7.9 g/dL (12.0-15.0)
[2021-12-04] MEDS: SODIUM CHLORIDE 0.9% IV 1,000 ML 75 ML IV CONT (18:54)
[2021-12-04] MEDS: diazePAM (*CRX) 5 MG TABLET PO (20:20)
[2021-12-05] VITALS (13 sets, daily range): BP systolic 102–124; BP diastolic 51–76; PULSE 64–129; RESP 14–20; TEMP 36.3–36.9; O2SAT 91–100
[2021-12-05] MEDS: LEVOTHYROXINE SODIUM 100 MCG, LEVOTHYROXINE SODIUM 75 MCG 175 MCG PO (05:40)
[2021-12-05] MEDS: ACETAMINOPHEN 325 MG TABLET 650 MG PO ×2 (05:40→18:55)
[2021-12-05 05:47] LABS: Basophils Percent Auto 0.4 % (0.2-1.2); Eosinophils Absolute Auto 0.1 K/mm3 (0-0.3); Eosinophils Percent Auto 1.9 % (0-4.4); Hematocrit 22.5 % (37.0-47.0); Hemoglobin 7.6 g/dL (12.0-15.0); Immature Granulocyte Absolute 0.05 K/mm3 (0.00-0.031); Immature Granulocyte Percent A 0.7 % (0-0.5); Immature Platelet Fraction Pct 7.1 % (0.9-11.2); Lymphocytes Absolute Auto 0.81 K/mm3 (0.9-3.2); Lymphocytes Percent Auto 11.2 % (18.3-44.2); Mean Corpuscular HGB Conc 33.8 g/dl (32-36); Mean Corpuscular Hemoglobin 31.7 pg (26-34); Mean Corpuscular Volume 93.8 fl (80-100); Monocytes Absolute Auto 0.8 K/mm3 (0.1-0.6); Monocytes Percent Auto 10.7 % (2.6-8.5); Neutrophils Absolute Auto 5.4 K/mm3 (1.3-6.7); Neutrophils Percent Auto 75.1 % (45.5-73.1); Platelet Count Result 140 k/mm3 (150-375); Red Cell Distribution Width 14.6 % (11.5-14.5); White Blood Count 7.2 K/mm3 (4.5-10.0)
[2021-12-05 05:55] LABS: Alanine Aminotransferase 17 U/L (6-35); Albumin Level 2.9 g/dL (3.5-5.1); Alkaline Phosphatase 80 U/L (38-126); Anion Gap 3 mmol/L (8-16); Aspartate Amino Transferase 26 U/L (14-36); Bilirubin,Total 0.9 mg/dL (0.2-1.3); Blood Urea Nitrogen 8 mg/dL (7-17); Calcium 7.8 mg/dL (8.4-10.2); Carbon Dioxide 24 mmol/L (22-30); Chloride 99 mmol/L (98-107); Estimated CRCL calculation 71 ml/min; Estimated Glomerular Filt Rate > 60; Glucose 109 mg/dL (65-110); Magnesium 1.8 mg/dL (1.6-2.3); Potassium 3.7 mmol/L (3.4-5.0); Sodium 126 mmol/L (137-145)
[2021-12-05 06:32] LABS: Iron 21 ug/dL (37-170)
[2021-12-05 06:39] LABS: Transferrin 169 mg/dL (206-381)
[2021-12-05 06:42] LABS: Percent Iron Saturation 8 % (20-50)
[2021-12-05 07:39] LABS: Folic Acid 13.1 ng/mL (2.76->20)
[2021-12-05] MEDS: SODIUM CHLORIDE 0.9% IV 1,000 ML 75 ML IV CONT ×2 (08:50→20:57)
[2021-12-05] MEDS: CELECOXIB 200 MG CAPSULE PO ×2 (08:51→17:57)
[2021-12-05] MEDS: BUDESONIDE 3 MG CAP.SR.24H PO (08:51)
[2021-12-05] MEDS: amLODIPine BESYLATE 5 MG TABLET 10 MG PO (08:53)
[2021-12-05] MEDS: CHOLECALCIFEROL 1,000 UNITS TABLET 2000 UNITS PO (08:54)
[2021-12-05] MEDS: LOSARTAN POTASSIUM 100 MG TABLET PO (08:54)
[2021-12-05] MEDS: NEBIVOLOL HCL 5 MG TABLET 20 MG PO (08:54)
[2021-12-05] MEDS: APIXABAN 5 MG TABLET PO ×2 (08:54→17:57)
--- NOTE | 2021-12-05 10:35 | PM.PNORT ---
Progress Note: A&P Assessment and Plan (1) S/P total knee arthroplasty: Code(s): Z96.659 - Presence of unspecified artificial knee joint Status: Acute Assessment and Plan: POD #4 : Right TKA Continue PT/OT. WBAT. Walker. HIGH FALL RISK. Continue pain control. Ice knee. Protect skin. Edema control. DVT prophylaxis with resumed Eliquis. SCDs. Incentive Spirometry Use reviewed. Monitor Dressing. Change prior to discharge. Bowel Regimen. hyponatremia improving. anemia improved. Plan for rehab. (2) Magnesium deficiency: Code(s): E61.2 - Magnesium deficiency Status: Acute (3) Hyponatremia: Code(s): E87.1 - Hypo-osmolality and hyponatremia Status: Acute Subjective Subjective Date/Time Seen: 12/05/21 10:35 Post Op day: 4 Principal diagnosis: Right total knee Interval history: Patient in bed comfortable. Ready to be discharged. Would like to restart antidepressant. Review of Systems Review of Systems: All systems reviewed & are unremarkable except as noted in HPI and below Constitutional: Constitutional: Denies fever(s) and Denies headache(s) ENT: Denies headache(s) Cardiovascular: Cardiovascular: Denies chest pain, Denies diaphoresis, Denies palpitations and Denies dyspnea Respiratory: Respiratory: Denies dyspnea Gastrointestinal: Gastrointestinal: Denies abdominal pain, Denies constipation, Denies nausea and Denies vomiting Genitourinary: Genitourinary: Reports nocturia and Denies dysuria Musculoskeletal: Musculoskeletal: Reports arthralgias (Right Knee ) and Reports joint swelling (Right Knee ) Neurologic: Denies headache(s) Endocrine: Endocrine: Denies palpitations Exam Const: General: comfortable and no acute distress Resp: Effort & Inspection: normal respiratory effort Cardio: Rate: regular rate Rhythm: regular rhythm Skin: Wounds: wounds noted Other: Incision c/d/i. No surrounding redness/warmth. No hematoma. Mild ecchymosis. No wound dehiscence Neuro: Cognition (Neuro): normal cognition Other: NV intact aside from block. Moves toes. Sensation intact to light touch. +ankle dorsiflexion/plantarflexion. Extrem: Right lower extremity: normal to inspection, knee Details: tenderness (diffuse, mild ), swelling (diffuse, consistent with surgical intervention ), abnormal ROM Details: pain with active ROM during, pain with passive ROM during and with range as follows (limited due to recent surgical intervention ); able to extend lower leg actively, ecchymosis (mild ) and other (no erythema); no unusual warmth, lower leg (Negative Kayce's sign ) Details: normal to inspection; no erythema and no tenderness, ankle (+ankle dorsiflexion/plantarflexion ) Details: normal to inspection, no edema and normal ROM; no tenderness, no swelling and no ecchymosis and foot Details: normal capillary refill, normal to inspection, vascular exam Details: dorsalis pedis pulse present and motor-sensory exam Details: light-touch normal; no tenderness Left lower extremity: normal to inspection Other: right knee with postoperative dressing over incision. No signs of infection Psych: Mental Status: mental status grossly normal Objective Data Vital Signs Vital Signs: Vital Signs - 24 hr 12/04/21 10:51 12/04/21 13:57 12/04/21 13:50 Temperature 98.3 F 97.8 F 97.8 F Pulse Rate 91 83 83 Respiratory Rate 18 18 18 Blood Pressure 103/57 L 100/45 L 100/45 L Pulse Oximetry 98 100 100 Oxygen Delivery 12/04/21 14:14 12/04/21 15:15 12/04/21 16:15 Temperature 98.5 F 98.8 F 98.5 F Pulse Rate 88 87 73 Respiratory Rate 18 18 18 Blood Pressure 97/41 L 104/37 L 103/44 L Pulse Oximetry 100 98 100 Oxygen Delivery 12/04/21 17:15 12/04/21 17:56 12/04/21 17:56 Temperature 97.6 F 98.6 F 98.6 F Pulse Rate 81 98 98 Respiratory Rate 18 18 18 Blood Pressure 108/48 L 114/44 L 114/44 L Pulse Oximetry 100 99 99 Oxygen Delivery 12/04/21 12:00 12/04/21 20:
--- NOTE | 2021-12-05 11:30 | P.PNIM_ITS ---
Progress Note: A&P Assessment and Plan (1) S/P total knee arthroplasty: Code(s): Z96.659 - Presence of unspecified artificial knee joint Status: Acute Assessment and Plan: * POD 4 * Post op care per orthopedic surgery * cefazolin x 3 bags * Pain medications: Percocet 1 tab Q4H PRN or 2 Tab Q6H PRN * Antiemetics: Zofran * PT/OT * DVT Eliquis (2) Hyponatremia: Code(s): E87.1 - Hypo-osmolality and hyponatremia Status: Acute Assessment and Plan: * Na 126 * Urine sodium 12, creatinine 542, urea 67.0, or osmolality still pending * Continue maintenance fluids at 75ml/hr * FENa score 0.1%, indication of fluid deficit * BNP 1116 * Raise sodium 4-6 to max of 8 per 24 hour period * Trend labs * Labs in the am * Tele monitor * Nephrology consult thank you for your help (3) Hypertension: Code(s): I10 - Essential (primary) hypertension Status: Acute Assessment and Plan: * Current BP 113/57 * Continue home amlodipine 10mg PO daily, Losartan 100mg PO Daily, Bystolic 20mg PO Daily * Trend BP * adjust therapy as indicated (4) Atrial fibrillation: Code(s): I48.91 - Unspecified atrial fibrillation Status: Acute Assessment and Plan: * History of a fib * Continue home Bystolic and Eliquis * Telemonitor * Looks like she sees Dr. Cuevas for cardiology * HR is better controlled since getting the fluids * EKG a fib since the last EKG, heart rate is controlled (5) Anemia: Code(s): D64.9 - Anemia, unspecified Status: Acute Assessment and Plan: * H/H7.6/22.5 * Anemia labs Iron 75, TIBC 318% saturation 24, transferrin 209, ferritin 104 * Recheck anemia labs * Supplement as indicated * Seems to be relatively stable at this time * transfuse if HGB is <7.0 * Could be secondary to acute blood loss, chronic disease, iron deficiency, medication induced, fluid overload * Give one unit of PRBC (6) Magnesium deficiency: Code(s): E61.2 - Magnesium deficiency Status: Acute Assessment and Plan: * Mg 1.8 * Continue to trend * replace as indicated * Trend labs * Labs in the am (7) Anxiety and depression: Code(s): F41.9 - Anxiety disorder, unspecified; F32.A - Depression, unspecified Status: Acute Assessment and Plan: * Zoloft and Seroquel on hold for hyponatremia * Will restart Seroquel * Diazepam on board * Continue Trend mood * Adjust therapy as indicated Time Spent With Patient Time with patient: Greater than 35 minutes Subjective Date/time seen: 12/05/21 113 Interval history: 12/05/211129 Patient is not having a good day today. Patient is very sad and upset. Patient stated that she is going home however at her know she was unable to go home today. She is very upset because she cannot have her anti depression and psychotic medications explained her that these are medications that can cause her sodium to go down. I also explained her that she is still waiting for insurance Auth to go through for [employer] [place] she stated that she was not waiting any longer and she was done. Patient was in tears very sad and upset. Rate explain her what sodium was and wires was low talked to Dr. Arriaga about her medications and decided to restart her Seroquel. She has no other complaints including c
--- NOTE | 2021-12-05 11:30 | PM.IMPN ---
Progress Note: A&P Assessment and Plan (1) S/P total knee arthroplasty: Code(s): Z96.659 - Presence of unspecified artificial knee joint Status: Acute Assessment and Plan: POD 4 Post op care per orthopedic surgery cefazolin x 3 bags Pain medications: Percocet 1 tab Q4H PRN or 2 Tab Q6H PRN Antiemetics: Zofran PT/OT DVT Eliquis (2) Hyponatremia: Code(s): E87.1 - Hypo-osmolality and hyponatremia Status: Acute Assessment and Plan: Na 126 Urine sodium 12, creatinine 542, urea 67.0, or osmolality still pending Continue maintenance fluids at 75ml/hr FENa score 0.1%, indication of fluid deficit BNP 1116 Raise sodium 4-6 to max of 8 per 24 hour period Trend labs Labs in the am Tele monitor Nephrology consult thank you for your help (3) Hypertension: Code(s): I10 - Essential (primary) hypertension Status: Acute Assessment and Plan: Current BP 113/57 Continue home amlodipine 10mg PO daily, Losartan 100mg PO Daily, Bystolic 20mg PO Daily Trend BP adjust therapy as indicated (4) Atrial fibrillation: Code(s): I48.91 - Unspecified atrial fibrillation Status: Acute Assessment and Plan: History of a fib Continue home Bystolic and Eliquis Telemonitor Looks like she sees Dr. Cuevas for cardiology HR is better controlled since getting the fluids EKG a fib since the last EKG, heart rate is controlled (5) Anemia: Code(s): D64.9 - Anemia, unspecified Status: Acute Assessment and Plan: H/H7.6/22.5 Anemia labs Iron 75, TIBC 318% saturation 24, transferrin 209, ferritin 104 Recheck anemia labs Supplement as indicated Seems to be relatively stable at this time transfuse if HGB is <7.0 Could be secondary to acute blood loss, chronic disease, iron deficiency, medication induced, fluid overload Give one unit of PRBC (6) Magnesium deficiency: Code(s): E61.2 - Magnesium deficiency Status: Acute Assessment and Plan: Mg 1.8 Continue to trend replace as indicated Trend labs Labs in the am (7) Anxiety and depression: Code(s): F41.9 - Anxiety disorder, unspecified; F32.A - Depression, unspecified Status: Acute Assessment and Plan: Zoloft and Seroquel on hold for hyponatremia Will restart Seroquel Diazepam on board Continue Trend mood Adjust therapy as indicated Time Spent With Patient Time with patient: Greater than 35 minutes Subjective Date/time seen: 12/05/21 1130 Interval history: 12/05/21 113 Patient is not having a good day today. Patient is very sad and upset. Patient stated that she is going home however at her know she was unable to go home today. She is very upset because she cannot have her anti depression and psychotic medications explained her that these are medications that can cause her sodium to go down. I also explained her that she is still waiting for insurance Auth to go through for [place] she stated that she was not waiting any longer and she was done. Patient was in tears very sad and upset. Rate explain her what sodium was and wires was low talked to Dr. Arriaga about her medications and decided to restart her Seroquel. She has no other complaints including chest pain, shortness of breath, nausea, vomiting, diarrhea, constipation, weakness or fatigue. 12/04/21 11:00 Patient is very sad today. She stated that her psychology is not good physically she feels okay she was able to get the shower today however she is in pain and she has for pain 0 she was able to get 1. She denies any chest pain, shortness as of breath, nausea, vomiting, diarrhea, constipation, weakness or fatigue. She also stated that she is kind of worried about getting blood today. She also would like to have visitors however her friends have COVID or were exposed to COVID
--- NOTE | 2021-12-05 12:02 | PM.PNNEP ---
Progress Note: A&P Assessment and Plan (1) Hyponatremia: Code(s): E87.1 - Hypo-osmolality and hyponatremia Status: Acute Assessment and Plan: acute on chronic slowly improving sodium ranges from 126 - 132 in the last year urine electrolytes suggest pre-renal azotemia improvement in sodium with normal saline IVFs seems to support this goal of therapy is rate of change of 4 - 6mmol/L in 24 hours (but not to exceed 8mmol/L) -- this has been met follow trend of repeat sodium levels (2) S/P total knee arthroplasty: Code(s): Z96.659 - Presence of unspecified artificial knee joint Status: Acute Assessment and Plan: post-op care as outlined by Orthopedic surgery pain control PT/OT DVT prophylaxis (3) Anemia: Code(s): D64.9 - Anemia, unspecified Status: Acute Assessment and Plan: s/p PRBC transfusion on 12/04/21 follow trend of H/H (4) Hypertension: Code(s): I10 - Essential (primary) hypertension Status: Acute Assessment and Plan: reasonable control follow trend of hemodynamics continue current medications Will continue to follow. Subjective Date/time seen: 12/05/21 12:02 Still seems a bit depressed at the time of my visit; tolerated PRBC transfusion yesterday without any issues; pain control seems stable; sodium level continues to slowly improve with interventions to date; no events/issues overnight or earlier this AM. Exam Narrative: General: WD/WN female in NAD Heart: normal S1 and S2; no rub Lungs: clear to auscultation Abdomen: soft, nontender, nondistended, positive bowel sounds Extremities: no cyanosis or clubbing; no edema; right knee with dressings in place Skin: warm and intact Objective Data Vital Signs Vital Signs: Vital Signs Temp Pulse Resp BP Pulse Ox O2 Del Method 12/05/21 10:25 36.4 C L 64 16 108/51 L 100 12/05/21 08:29 98 97 Room Air 12/05/21 04:42 36.3 C L 87 20 113/57 L 97 12/05/21 04:00 90 12/05/21 00:00 84 12/05/21 00:21 36.4 C L 90 18 122/72 99 12/04/21 20:00 81 12/04/21 20:06 36.6 C 84 18 113/65 100 12/04/21 17:56 37.0 C 98 18 114/44 L 99 12/04/21 17:56 37.0 C 98 18 114/44 L 99 12/04/21 17:15 36.4 C 81 18 108/48 L 100 12/04/21 16:15 36.9 C 73 18 103/44 L 100 12/04/21 15:15 37.1 C 87 18 104/37 L 98 12/04/21 14:14 36.9 C 88 18 97/41 L 100 12/04/21 13:50 36.6 C 83 18 100/45 L 100 12/04/21 13:57 36.6 C 83 18 100/45 L 100 Intake/Output Intake/Output: Intake & Output 12/02/21 12/03/21 12/04/21 12/05/21 23:59 23:59 23:59 23:59 Intake Total 1810 2812 3010 1510 Output Total 900 Balance 910 2812 3010 1510 Meds/Results Medications: Active Medications Generic Name Dose Route Start Last Admin Trade Name Freq PRN Reason Stop Dose Admin Acetaminophen 650 mg 12/01/21 12:39 12/05/21 05:40 Acetaminophen 325 Mg Tablet PO 650 mg Q4H PRN Administration Mild Pain (1-3) or Fever Amlodipine Besylate 10 mg 12/02/21 09:00 12/05/21 08:53 Amlodipine Besylate 5 Mg Tablet PO 10 mg QAM STEPHANIE Administration Apixaban 5 mg 12/01/21 17:00 12/05/21 08:54 Apixaban 5 Mg Tablet PO 5 mg BID STEPHANIE Administration Budesonide 3 mg 12/01/21 11:17 12/05/21 08:51 Budesonide 3 Mg Cap.Sr.24h PO 3 mg TID PRN Administration Diarrhea Calcium Carbonate 500 mg 12/01/21 21:00 12/04/21 20:15 Calcium/Vitamin D 500 Mg Tablet PO 500 mg HS STEPHANIE Administration Celecoxib 200 mg 12/01/21 17:00 12/05/21 08:51 Celecoxib 200 Mg Capsule PO 200 mg BIDWM STEPHANIE Administration Diazepam 5 mg 12/03/21 10:27 12/04/21 20:20 Diazepam (*Crx) 5 Mg Tablet PO 5 mg Q8H PRN Administration Spasms Diphenhydramine HCl 25 mg 12/01/21 11:17 Diphenhydramine Hcl Inj 50 Mg/Ml Vial IV PUSH Q6H PRN Itching Hydrochlorothiazid
[2021-12-05 13:26] LABS: Sodium 128 mmol/L (137-145)
[2021-12-05 20:34] LABS: Sodium 130 mmol/L (137-145)
[2021-12-05] MEDS: diazePAM (*CRX) 5 MG TABLET PO (20:54)
[2021-12-05] MEDS: QUEtiapine FUMARATE 25 MG TABLET 50 MG PO (21:44)
[2021-12-06] VITALS: PULSE 94
[2021-12-06 02:00] VITALS: BP 140/66; PULSE 61; RESP 12; TEMP 37; O2SAT 93
[2021-12-06 04:00] VITALS: PULSE 95
[2021-12-06 05:23] VITALS: BP 137/73; PULSE 60; RESP 18; TEMP 36.9; O2SAT 90
[2021-12-06 05:45] LABS: Hemoglobin 8.5 g/dL (12.0-15.0); Mean Corpuscular Hemoglobin 31.7 pg (26-34); Mean Corpuscular Volume 93.3 fl (80-100); Mean Platelet Volume 9.9 fl (7.4-10.4); Platelet Count Result 176 k/mm3 (150-375); Red Blood Count 2.68 M/mm3 (4.2-5.4); Red Cell Distribution Width 14.8 % (11.5-14.5); White Blood Count 8.5 K/mm3 (4.5-10.0)
[2021-12-06 05:54] LABS: Albumin Level 3.2 g/dL (3.5-5.1); Anion Gap 6 mmol/L (8-16); Blood Urea Nitrogen 10 mg/dL (7-17); Calcium 8.2 mg/dL (8.4-10.2); Carbon Dioxide 24 mmol/L (22-30); Chloride 103 mmol/L (98-107); Estimated CRCL calculation 71 ml/min; Estimated Glomerular Filt Rate > 60; Glucose 125 mg/dL (65-110); Phosphorus 3.4 mg/dL (2.5-4.5); Potassium 3.8 mmol/L (3.4-5.0); Sodium 133 mmol/L (137-145)
[2021-12-06] MEDS: LEVOTHYROXINE SODIUM 100 MCG, LEVOTHYROXINE SODIUM 75 MCG 175 MCG PO (06:29)
--- NOTE | 2021-12-06 07:00 | PM.DS ---
DS: Admitting Diagnosis Discharge Date 12/06/21 0700 Admitting Diagnosis Total knee replacement/Hyponatremia DS: Discharge Diagnosis Discharge Diagnosis (1) S/P total knee arthroplasty: Code(s): Z96.659 - Presence of unspecified artificial knee joint Status: Acute Assessment and Plan: POD 5 Post op care per orthopedic surgery cefazolin x 3 bags Pain medications: Percocet 1 tab Q4H PRN or 2 Tab Q6H PRN Antiemetics: Zofran PT/OT DVT Eliquis (2) Hyponatremia: Code(s): E87.1 - Hypo-osmolality and hyponatremia Status: Acute Assessment and Plan: Na 133 Urine sodium 12, creatinine 542, urea 67.0, or osmolality still pending Continue maintenance fluids at 75ml/hr FENa score 0.1%, indication of fluid deficit BNP 1116 Raise sodium 4-6 to max of 8 per 24 hour period Trend labs Labs in the am Tele monitor Nephrology consult thank you for your help Restarted seroquel, will need to continue to hold SSRI (Zoloft) (3) Hypertension: Code(s): I10 - Essential (primary) hypertension Status: Acute Assessment and Plan: Current BP 137/73 Continue home amlodipine 10mg PO daily, Losartan 100mg PO Daily, Bystolic 20mg PO Daily Trend BP adjust therapy as indicated (4) Atrial fibrillation: Code(s): I48.91 - Unspecified atrial fibrillation Status: Acute Assessment and Plan: History of a fib Continue home Bystolic and Eliquis Telemonitor Looks like she sees Dr. Cuevas for cardiology HR is better controlled since getting the fluids EKG a fib since the last EKG, heart rate is controlled (5) Anemia: Code(s): D64.9 - Anemia, unspecified Status: Acute Assessment and Plan: H/H 8.5/25.0 Anemia labs Iron 75, TIBC 318% saturation 24, transferrin 209, ferritin 104 Recheck anemia labs Supplement as indicated Seems to be relatively stable at this time transfuse if HGB is <7.0 Could be secondary to acute blood loss, chronic disease, iron deficiency, medication induced, fluid overload Give one unit of PRBC (6) Magnesium deficiency: Code(s): E61.2 - Magnesium deficiency Status: Acute Assessment and Plan: Mg 1.8 Continue to trend replace as indicated Trend labs Labs in the am (7) Anxiety and depression: Code(s): F41.9 - Anxiety disorder, unspecified; F32.A - Depression, unspecified Status: Acute Assessment and Plan: Zoloft and Seroquel on hold for hyponatremia Will restart Seroquel Diazepam on board Continue Trend mood Adjust therapy as indicated Will need to continue to hold the Zoloft, will probably need to change to a different medication DS: Summary Hospital Course Hospital Course: Patient is a 76-year-old female with a past medical history of hypertension, hypothyroidism, depression, anxiety who presented for elective total knee replacement with Dr. Arechiga on 12/01/2021. Surgical procedure went well and postop care was per Orthopedics however patient was noted to be hyponatremic with a sodium of 119. Urine studies were performed and Urine sodium was 12. IV fluids were started and sodium got worse down to 116 antidepression medications were stopped. Nephrology was consulted. Sodium was trended throughout admission. Currently sodium is 133, and stable. It was also noted that she became anemic probably related to volume overload and acute blood loss. She was given one unit of PRBC and H/H has been stable. Mentality has been a bit unstable with the medications being stopped. However she was supplemented with Diazepam. Which did seem to help. Seroquel was restarted and sodium remained stable. PT/OT has been working with the patient. She has been able to perform ADLs. However weakness has persisted, which is related to hyponatremia and not being mobile. Labs and vital signs are st
--- NOTE | 2021-12-06 07:00 | P.DS_ITS ---
DS: Admitting Diagnosis Discharge Date 12/06/21 0700 Admitting Diagnosis Total knee replacement/Hyponatremia DS: Discharge Diagnosis Discharge Diagnosis (1) S/P total knee arthroplasty: Code(s): Z96.659 - Presence of unspecified artificial knee joint Status: Acute Assessment and Plan: * POD 5 * Post op care per orthopedic surgery * cefazolin x 3 bags * Pain medications: Percocet 1 tab Q4H PRN or 2 Tab Q6H PRN * Antiemetics: Zofran * PT/OT * DVT Eliquis (2) Hyponatremia: Code(s): E87.1 - Hypo-osmolality and hyponatremia Status: Acute Assessment and Plan: * Na 133 * Urine sodium 12, creatinine 542, urea 67.0, or osmolality still pending * Continue maintenance fluids at 75ml/hr * FENa score 0.1%, indication of fluid deficit * BNP 1116 * Raise sodium 4-6 to max of 8 per 24 hour period * Trend labs * Labs in the am * Tele monitor * Nephrology consult thank you for your help Restarted seroquel, will need to continue to hold SSRI (Zoloft) (3) Hypertension: Code(s): I10 - Essential (primary) hypertension Status: Acute Assessment and Plan: * Current BP 137/73 * Continue home amlodipine 10mg PO daily, Losartan 100mg PO Daily, Bystolic 20mg PO Daily * Trend BP * adjust therapy as indicated (4) Atrial fibrillation: Code(s): I48.91 - Unspecified atrial fibrillation Status: Acute Assessment and Plan: * History of a fib * Continue home Bystolic and Eliquis * Telemonitor * Looks like she sees Dr. Cuevas for cardiology * HR is better controlled since getting the fluids * EKG a fib since the last EKG, heart rate is controlled (5) Anemia: Code(s): D64.9 - Anemia, unspecified Status: Acute Assessment and Plan: * H/H 8.5/25.0 * Anemia labs Iron 75, TIBC 318% saturation 24, transferrin 209, ferritin 104 * Recheck anemia labs * Supplement as indicated * Seems to be relatively stable at this time * transfuse if HGB is <7.0 * Could be secondary to acute blood loss, chronic disease, iron deficiency, medication induced, fluid overload * Give one unit of PRBC (6) Magnesium deficiency: Code(s): E61.2 - Magnesium deficiency Status: Acute Assessment and Plan: * Mg 1.8 * Continue to trend * replace as indicated * Trend labs * Labs in the am (7) Anxiety and depression: Code(s): F41.9 - Anxiety disorder, unspecified; F32.A - Depression, unspecified Status: Acute Assessment and Plan: * Zoloft and Seroquel on hold for hyponatremia * Will restart Seroquel * Diazepam on board * Continue Trend mood * Adjust therapy as indicated Will need to continue to hold the Zoloft, will probably need to change to a different medication DS: Summary Hospital Course Hospital Course: Patient is a 76-year-old female with a past medical history of hypertension, hypothyroidism, depression, anxiety who presented for elective total knee replacement with Dr. Arechiga on 12/01/2021. Surgical procedure went well and postop care was per Orthopedics however patient was noted to be hyponatremic with a sodium of 119. Urine studies were performed and Urine sodium was 12. IV fluids were started and sodium got worse down to 116 antidepression medications were stopped. Nephrology was consulted. Sodium was trended throughout
[2021-12-06] MEDS: CHOLECALCIFEROL 1,000 UNITS TABLET 2000 UNITS PO (08:26)
[2021-12-06] MEDS: APIXABAN 5 MG TABLET PO (08:26)
[2021-12-06] MEDS: amLODIPine BESYLATE 5 MG TABLET 10 MG PO (08:26)
[2021-12-06] MEDS: CELECOXIB 200 MG CAPSULE PO (08:26)
[2021-12-06] MEDS: NEBIVOLOL HCL 5 MG TABLET 20 MG PO (08:27)
[2021-12-06] MEDS: LOSARTAN POTASSIUM 100 MG TABLET PO (08:27)
[2021-12-06 08:28] LABS: EDCOVIDSCREEN Negative (Negative)
[2021-12-06] MEDS: ACETAMINOPHEN 325 MG TABLET 650 MG PO (09:23)
[2021-12-06 10:58] VITALS: BP 117/60; PULSE 94; RESP 16; TEMP 36.4; O2SAT 94
[2021-12-06 14:15] LABS: Osmolality, Urine 366 mOsm/kg (50-1200)
== END 2021-12-06 12:30 | DRG 470 ==
LOC: ANHSURGERY 13:35 → ANH2MED 13:35
PROVIDERS: Internal Medicine Nephrology; Nurse Practitioner; Admitting Provider Orthopaedic Surgery; PCP Internal Medicine; Visit Provider Orthopaedic Surgery
PROC: 0SRC069 Replacement of Right Knee Joint with Oxidized Zirconium on Polyethylene Synthetic Substitute, Cemented, Open Approach (ICD-10-PCS; CPT 27447; principal; 2021-12-01 07:30)
DX: M17.11 Unilateral primary osteoarthritis, right knee (principal); E87.1 Hypo-osmolality and hyponatremia; M19.011 Primary osteoarthritis, right shoulder; I10 Essential (primary) hypertension; I48.91 Unspecified atrial fibrillation; D64.9 Anemia, unspecified; E03.9 Hypothyroidism, unspecified; F32.A Depression, unspecified; E61.2 Magnesium deficiency; Z85.850 Personal history of malignant neoplasm of thyroid; E78.00 Pure hypercholesterolemia, unspecified; Z79.899 Other long term (current) drug therapy; Z87.891 Personal history of nicotine dependence; Z85.828 Personal history of other malignant neoplasm of skin
CPT/HCPCS: 36415; 36430; 73560; 80048; 80053; 80069; 80307; 81001; 82040; 82565; 82570; 82607; 82728; 82746; 83036; 83540; 83550; 83615; 83735; 83880; 83935; 84100; 84295; 84300; 84443; 84466; 84540; 85014; 85018; 85025; 85027; 85055; 85610; 85730; 86850; 86900; 86901; 86920; 87081; 87086; 87426; 93005; 97110; 97116; 97161; 97165; 97530; 97535; A9270; C1713; C1776; C9803; G0378; J0171; J0690; J1040; J1100; J1170; J1885; J1940; J2060; J2250; J2270; J2370; J2405; J2704; J2795; J3010; J3475; J7030; J7050; J7120; P9016